=== PATIENT | female | born 1940 | race Caucasian/White ===

== ENCOUNTER 2017-10-17 20:58 | Emergency (ER) | payer MEDICARE ==
[2017-10-17 21:36] LABS: ADD MAN DIFF? NO
[2017-10-17 21:43] LABS: BASO % 1 % (0-3); EOS # 0.1 x10^3/uL (0.0-0.7); EOS % 1 % (0-3); HEMATOCRIT 37.5 % (36.0-47.0); HEMOGLOBIN 12.3 g/dL (12.0-15.5); LYMPH # 1.5 x10^3/uL (1.0-4.8); LYMPH % 26 % (24-48); MEAN CORPUSCULAR HEMOGLOBIN 30 pg (25-35); MEAN CORPUSCULAR HGB CONC 33 g/dL (31-37); MEAN CORPUSCULAR VOLUME 92 fL (79-100); MONO # 0.5 x10^3/uL (0.0-1.1); MONO % 9 % (0-9); NEUT # 3.6 x10^3uL (1.8-7.7); NEUT % 63 % (31-73); PLATELET COUNT 225 x10^3/uL (140-400); RED BLOOD COUNT 4.09 x10^6/uL (3.50-5.40); WHITE BLOOD COUNT 5.8 x10^3/uL (4.0-11.0)
[2017-10-17 21:53] LABS: PARTIAL THROMBOPLASTIN TIME 32 SEC (24-38); PROTHROMBIN TIME PATIENT 12.5 SEC (11.7-14.0)
[2017-10-17 21:56] LABS: D-DIMER 0.45 ug/mlFEU (0.00-0.50)
[2017-10-17 22:07] LABS: TROPONINI < 0.017 ng/mL (0.000-0.055)
[2017-10-17 22:07] LABS: ANION GAP 11 (6-14); BLOOD UREA NITROGEN 13 mg/dL (7-20); BUN/CREATININE RATIO 19 (6-20); CALCIUM 8.5 mg/dL (8.5-10.1); CARBON DIOXIDE 26 mmol/L (21-32); CHLORIDE 102 mmol/L (98-107); CREATININE 0.7 mg/dL (0.6-1.0); GFR 80.9; GLUCOSE 101 mg/dL (70-99); POTASSIUM 5.2 mmol/L (3.5-5.1); SODIUM 139 mmol/L (136-145)
[2017-10-17 22:12] LABS: NT-PRO BNP 163 pg/mL (0-449)
[2017-10-17 22:12] LABS: ALBUMIN 3.6 g/dL (3.4-5.0); ALBUMIN/GLOBULIN RATIO 1.2 (1.0-1.7); ALK PHOS 48 U/L (46-116); ALT (SGPT) 14 U/L (14-59); AST (SGOT) 30 U/L (15-37); LIPASE 234 U/L (73-393); MAGNESIUM 2.1 mg/dL (1.8-2.4); TOTAL BILIRUBIN 0.4 mg/dL (0.2-1.0); TOTAL PROTEIN 6.5 g/dL (6.4-8.2)
[2017-10-17] MEDS: ASPIRIN ENTERIC COATED 325 MG TABLET.DR. PO (22:24)
[2017-10-17] MEDS: LIDO:MAALOX:DONNATAL 1:1:1 15 ML SINGLE DOSE SWSW (22:25)
[2017-10-17] MEDS: KETOROLAC 15 MG/ML VIAL. IV (22:27)
[2017-10-17] MEDS: fentaNYL PF VIAL 100 MCG/2 ML VIAL IV (22:31)
[2017-10-18 02:26] LABS: TROPONINI < 0.017 ng/mL (0.000-0.055)
== END 2017-10-18 04:06 | disposition home or self-care (01) ==
LOC: ER 10-18 04:06
DX: R07.89 Other chest pain (principal); R06.02 Shortness of breath; I10 Essential (primary) hypertension; F03.90 Unspecified dementia, unspecified severity, without behavioral disturbance, psychotic disturbance, mood disturbance, and anxiety; Z90.710 Acquired absence of both cervix and uterus
CPT/HCPCS: 36415; 71045; 80053; 83690; 83735; 83880; 84484; 85025; 85379; 85610; 85730; 93005; 96374; 96375; 99285-25; J1885; J3010

== ENCOUNTER 2018-02-08 11:37 | Inpatient (IN) | payer MEDICARE, OTHER ==
[2018-02-08 12:10] LABS: ADD MAN DIFF? NO
[2018-02-08 12:23] LABS: BASO % 1 % (0-3); EOS # 0.1 x10^3/uL (0.0-0.7); EOS % 1 % (0-3); HEMATOCRIT 37.3 % (36.0-47.0); HEMOGLOBIN 12.5 g/dL (12.0-15.5); LYMPH % 17 % (24-48); MEAN CORPUSCULAR HEMOGLOBIN 30 pg (25-35); MEAN CORPUSCULAR HGB CONC 34 g/dL (31-37); MEAN CORPUSCULAR VOLUME 90 fL (79-100); MONO # 0.5 x10^3/uL (0.0-1.1); MONO % 8 % (0-9); NEUT # 4.4 x10^3uL (1.8-7.7); NEUT % 73 % (31-73); PLATELET COUNT 200 x10^3/uL (140-400); RED BLOOD COUNT 4.15 x10^6/uL (3.50-5.40); RED CELL DISTRIBUTION WIDTH 13.1 % (11.5-14.5)
[2018-02-08] MEDS: fentaNYL PF VIAL 100 MCG/2 ML VIAL IV (12:28)
[2018-02-08 12:29] LABS: ANION GAP 8 (6-14); BLOOD UREA NITROGEN 18 mg/dL (7-20); BUN/CREATININE RATIO 23 (6-20); CALCIUM 8.9 mg/dL (8.5-10.1); CARBON DIOXIDE 28 mmol/L (21-32); CHLORIDE 105 mmol/L (98-107); CREATININE 0.8 mg/dL (0.6-1.0); GFR 69.4; GLUCOSE 100 mg/dL (70-99); POTASSIUM 3.8 mmol/L (3.5-5.1); SODIUM 141 mmol/L (136-145)
[2018-02-08 12:35] LABS: ALBUMIN 3.6 g/dL (3.4-5.0); ALBUMIN/GLOBULIN RATIO 1.1 (1.0-1.7); ALK PHOS 59 U/L (46-116); ALT (SGPT) 15 U/L (14-59); AST (SGOT) 16 U/L (15-37); LIPASE 592 U/L (73-393); TOTAL BILIRUBIN 0.6 mg/dL (0.2-1.0); TOTAL PROTEIN 6.8 g/dL (6.4-8.2)
[2018-02-08 12:39] LABS: PARTIAL THROMBOPLASTIN TIME 35 SEC (24-38); PROTHROMBIN TIME PATIENT 12.7 SEC (11.7-14.0)
[2018-02-08 12:46] LABS: CKMB MASS 0.9 ng/mL (0.0-3.6); CREATINE KINASE 55 U/L (26-192)
[2018-02-08 13:06] LABS: LACTIC ACID 1.1 mmol/L (0.4-2.0)
[2018-02-08] MEDS ORDERED: CONTRAST GIVEN MC (13:15)
[2018-02-08] MEDS ORDERED: IOHEXOL 240 MG/ML 50ML VIAL. PO (13:15)
[2018-02-08 13:40] LABS: BILIRUBIN,URINE NEGATIVE (NEG); CLARITY,URINE CLEAR; COLOR,URINE YELLOW; GLUCOSE,URINE NEGATIVE (NEG); NITRITE,URINE NEGATIVE (NEG); PH,URINE 7.5; PROTEIN,URINE NEGATIVE (NEG-TRACE); UROBILINOGEN,URINE 0.2 mg/dL (0.2 mg/dL)
[2018-02-08] MEDS: IOHEXOL 300 MG/ML 100ML VIAL. IV (13:43)
[2018-02-08 13:54] LABS: BACTERIA,URINE FEW /HPF (0-FEW); RBC,URINE 0 /HPF (0-2); SQUAMOUS EPITHELIAL CELL,UR FEW /LPF; WBC,URINE 0 /HPF (0-4)
[2018-02-08 13:55] LABS: AMORPHOUS SEDIMENT,UR PRESENT /HPF
[2018-02-08] MEDS ORDERED: ONDANSETRON PF 4 MG/2 ML VIAL. IV (16:15)
[2018-02-08] MEDS ORDERED: MORPHINE SULFATE 4 MG/ML DISP.SYRIN. IV (16:15)
[2018-02-08] MEDS: POTASSIUM CL 20MEQ D5-0.45NACL 1,000 ML IV (17:12)
[2018-02-08] MEDS: ATORVASTATIN CALCIUM 10 MG TABLET. PO (20:39)
[2018-02-08] MEDS: PANTOPRAZOLE 40 MG TABLET.DR. PO (20:39)
[2018-02-08] MEDS: ENOXAPARIN 40 MG/0.4 ML SYRINGE. SQ (20:43)
[2018-02-09 04:31] LABS: HEMATOCRIT 33.4 % (36.0-47.0); HEMOGLOBIN 11.4 g/dL (12.0-15.5); MEAN CORPUSCULAR HEMOGLOBIN 31 pg (25-35); MEAN CORPUSCULAR HGB CONC 34 g/dL (31-37); MEAN CORPUSCULAR VOLUME 90 fL (79-100); PLATELET COUNT 195 x10^3/uL (140-400); RED BLOOD COUNT 3.72 x10^6/uL (3.50-5.40); RED CELL DISTRIBUTION WIDTH 12.8 % (11.5-14.5); WHITE BLOOD COUNT 5.4 x10^3/uL (4.0-11.0)
[2018-02-09 05:50] LABS: ALK PHOS 53 U/L (46-116); ALT (SGPT) 15 U/L (14-59); AMYLASE 51 U/L (25-115); ANION GAP 5 (6-14); AST (SGOT) 14 U/L (15-37); BLOOD UREA NITROGEN 10 mg/dL (7-20); BUN/CREATININE RATIO 14 (6-20); CALCIUM 8.5 mg/dL (8.5-10.1); CARBON DIOXIDE 30 mmol/L (21-32); CHLORIDE 107 mmol/L (98-107); CHOLESTEROL 211 mg/dL (0-200); CREATININE 0.7 mg/dL (0.6-1.0); GFR 80.9; GLUCOSE 99 mg/dL (70-99); HDLC 65 mg/dL (40-60); LDLC 129 mg/dL (0-100); LIPASE 142 U/L (73-393); NON-HDL CHOLESTEROL 146 mg/dL (0-129); POTASSIUM 3.3 mmol/L (3.5-5.1); SODIUM 142 mmol/L (136-145); TOTAL BILIRUBIN 0.5 mg/dL (0.2-1.0); TOTAL PROTEIN 5.9 g/dL (6.4-8.2); TRIGLYCERIDES 87 mg/dL (0-150); VLDLC 17 mg/dL (0-40)
[2018-02-09 05:52] LABS: CHOLESTEROL/HDL RATIO 3.2
[2018-02-09] MEDS ORDERED: PANTOPRAZOLE 40 MG TABLET.DR. PO (07:30)
[2018-02-09] MEDS: PANTOPRAZOLE 40 MG TABLET.DR. PO (07:38)
[2018-02-09 07:53] LABS: SEDIMENTATION RATE 8 (0-25)
[2018-02-09] MEDS: ASPIRIN ENTERIC COATED 81 MG TABLET.DR. PO (08:43)
[2018-02-09] MEDS: LIDO:MAALOX 1:1 20 ML SINGLE DOSE. PO ×2 (10:07→22:02)
[2018-02-09] MEDS: ACETAMINOPHEN 325 MG TABLET. PO ×2 (10:07→22:01)
[2018-02-09] MEDS ORDERED: PSEUDOEPHEDRINE ER 120 MG TABLET.ER. PO (12:00)
[2018-02-09] MEDS: POTASSIUM CHLORIDE 20 MEQ TABLET.ER. PO (12:24)
[2018-02-09] MEDS: CETIRIZINE HCL 10 MG TABLET. PO (12:24)
[2018-02-09] MEDS: ATORVASTATIN CALCIUM 10 MG TABLET. PO (22:01)
[2018-02-09] MEDS: TEMAZEPAM 7.5 MG CAPSULE PO (22:01)
[2018-02-09] MEDS: ENOXAPARIN 40 MG/0.4 ML SYRINGE. SQ (22:02)
[2018-02-10 04:46] LABS: HEMATOCRIT 33.8 % (36.0-47.0); HEMOGLOBIN 11.7 g/dL (12.0-15.5); MEAN CORPUSCULAR HEMOGLOBIN 31 pg (25-35); MEAN CORPUSCULAR HGB CONC 35 g/dL (31-37); MEAN CORPUSCULAR VOLUME 89 fL (79-100); PLATELET COUNT 189 x10^3/uL (140-400); RED BLOOD COUNT 3.79 x10^6/uL (3.50-5.40); RED CELL DISTRIBUTION WIDTH 12.7 % (11.5-14.5); WHITE BLOOD COUNT 4.9 x10^3/uL (4.0-11.0)
[2018-02-10 05:05] LABS: ALBUMIN 3.1 g/dL (3.4-5.0); ALBUMIN/GLOBULIN RATIO 1.1 (1.0-1.7); ALK PHOS 57 U/L (46-116); ALT (SGPT) 17 U/L (14-59); AMYLASE 68 U/L (25-115); ANION GAP 5 (6-14); AST (SGOT) 17 U/L (15-37); BLOOD UREA NITROGEN 10 mg/dL (7-20); BUN/CREATININE RATIO 14 (6-20); CALCIUM 8.8 mg/dL (8.5-10.1); CARBON DIOXIDE 32 mmol/L (21-32); CHLORIDE 105 mmol/L (98-107); CREATININE 0.7 mg/dL (0.6-1.0); GFR 80.9; GLUCOSE 96 mg/dL (70-99); LIPASE 320 U/L (73-393); POTASSIUM 3.8 mmol/L (3.5-5.1); SODIUM 142 mmol/L (136-145); TOTAL BILIRUBIN 0.5 mg/dL (0.2-1.0)
[2018-02-10 06:52] LABS: SEDIMENTATION RATE 6 (0-25)
[2018-02-10] MEDS: CETIRIZINE HCL 10 MG TABLET. PO (08:19)
[2018-02-10] MEDS: ACETAMINOPHEN 325 MG TABLET. PO (08:19)
[2018-02-10] MEDS: ASPIRIN ENTERIC COATED 81 MG TABLET.DR. PO (08:19)
[2018-02-10] MEDS: PANTOPRAZOLE 40 MG TABLET.DR. PO (08:19)
== END 2018-02-10 15:30 | disposition home health service (06) | DRG 440 ==
LOC: ER 11:37 → 5 NORTH 16:00
DX: K85.90 Acute pancreatitis without necrosis or infection, unspecified (principal); F03.90 Unspecified dementia, unspecified severity, without behavioral disturbance, psychotic disturbance, mood disturbance, and anxiety; E78.5 Hyperlipidemia, unspecified; F41.9 Anxiety disorder, unspecified; I10 Essential (primary) hypertension; K21.9 Gastro-esophageal reflux disease without esophagitis; K57.30 Diverticulosis of large intestine without perforation or abscess without bleeding; K59.00 Constipation, unspecified; K86.1 Other chronic pancreatitis; M19.90 Unspecified osteoarthritis, unspecified site; M81.0 Age-related osteoporosis without current pathological fracture; Z82.0 Family history of epilepsy and other diseases of the nervous system; Z83.3 Family history of diabetes mellitus; Z90.710 Acquired absence of both cervix and uterus; Z98.49 Cataract extraction status, unspecified eye
CPT/HCPCS: 36415; 74177; 76700; 80053; 80061; 81001; 82150; 82553; 83605; 83690; 85025; 85027; 85610; 85651; 85730; 93005; 96365; 96375; 99285-25; J1650; J3010; Q9967

== ENCOUNTER 2018-06-23 14:43 | Emergency (ER) | payer MEDICARE ==
[~2018-06-23] VITALS: Ht 160 cm; Wt 60.8 kg
[~2018-06-23 14:43] MED LIST: ASPI-612 PO; ATOR10TA60 PO; CIPR250T30 PO; DONE10TA7 PO; DONE5TAB7 PO; GINK30CA PO; GLUC1TAB71 PO; HYDR-3074 PO; LISI10TA2 PO; METR500T PO; OMEP10CA3 PO; OXYB1PAT4 TD; PANT40TA5 PO; RANI150T21 PO; SERT50TA PO; TRAM-48 PO
[2018-06-23 17:44] LABS: BASO # 0.1 x10^3/uL (0.0-0.2); BASO % 1 % (0-3); EOS # 0.1 x10^3/uL (0.0-0.7); EOS % 1 % (0-3); HEMATOCRIT 37.6 % (36.0-47.0); HEMOGLOBIN 12.7 g/dL (12.0-15.5); LYMPH # 1.1 x10^3/uL (1.0-4.8); LYMPH % 13 % (24-48); MEAN CORPUSCULAR HEMOGLOBIN 31 pg (25-35); MEAN CORPUSCULAR HGB CONC 34 g/dL (31-37); MEAN CORPUSCULAR VOLUME 91 fL (79-100); MONO # 0.9 x10^3/uL (0.0-1.1); MONO % 10 % (0-9); NEUT # 6.5 x10^3uL (1.8-7.7); NEUT % 75 % (31-73); PLATELET COUNT 226 x10^3/uL (140-400); RED BLOOD COUNT 4.15 x10^6/uL (3.50-5.40); RED CELL DISTRIBUTION WIDTH 14.1 % (11.5-14.5); WHITE BLOOD COUNT 8.6 x10^3/uL (4.0-11.0)
--- NOTE | 2018-06-23 17:52 | PHYS DOC ---
Past Medical History Past Medical History: Constipation, Dementia, Diverticulitis, Hypertension, Pancreatitis Additional Past Medical Histor: pancreatitis Past Surgical History: Hysterectomy, Tonsillectomy, Other Additional Past Surgical Histo: partial hysterectomy, hernia repair Alcohol Use: None Drug Use: None Adult General Chief Complaint Chief Complaint: LOWER EXT PAIN HPI HPI Patient is a 78 year old female who presents with complaints of right foot pain that shoots up her leg since awakening this morning. She denies any recent injury. States that her foot feels tender to touch. She was recently admitted to the hospital last week for diverticulitis and is currently taking Cipro and Flagyl for treatment of that condition. She denies any abdominal pain, nausea, vomiting, diarrhea, or fever today. Her only complaint is her foot pain , currently she rates it as 10 out of 10 on the pain scale. Review of Systems Review of Systems Constitutional: Denies fever or chills [] GI: Denies abdominal pain, nausea, vomiting, or diarrhea [] : Denies dysuria or hematuria [] Musculoskeletal: reports R foot pain and swelling since awakening with no known injury Integument: Denies rash or skin lesions [] Neurologic: Denies headache, focal weakness or sensory changes [] All other systems were reviewed and found to be within normal limits, except as documented in this note. Current Medications Current Medications Current Medications Medications (Trade) Dose Ordered Sig/Bob Start Time Stop Time Status Last Admin Dose Admin Acetaminophen/ Codeine Phosphate (Tylenol #3) 1 tab 1X ONCE 06/23/18 20:30 06/23/18 20:31 DC 06/23/18 20:50 1 TAB Allergies Allergies Allergies Coded Allergies Type Severity Reaction Last Updated Verified Sulfa (Sulfonamide Antibiotics) Adverse Reaction Intermediate Nausea and Vomiting 06/23/18 Yes Physical Exam Physical Exam Constitutional: Well developed, well nourished, no acute distress, non-toxic appearance. [] HENT: Normocephalic, atraumatic, bilateral external ears normal, nose normal. [] Eyes: conjunctiva normal, no discharge. [] Skin: Warm, dry, no erythema, no rash. [] Extremities: No cyanosis, no clubbing, ROM intact, 1+ edema to right foot with tenderness to palpation, no deformity Neurologic: Alert and oriented X 3, normal motor function, normal sensory function, no focal deficits noted. [] Psychologic: Affect normal, judgement normal, mood normal. [] Current Patient Data Vital Signs Vital Signs Date Time Temp Pulse Resp B/P (MAP) Pulse Ox O2 Delivery O2 Flow Rate FiO2 06/23/18 21:00 66 18 155/68 (97) 99 06/23/18 20:50 Room Air 06/23/18 16:00 97.9 97.9 Lab Values Laboratory Tests Test 06/23/18 16:50 06/23/18 17:30 Uric Acid 3.2 mg/dL (2.6-6.0) White Blood Count 8.6 x10^3/uL (4.0-11.0) Red Blood Count 4.15 x10^6/uL (3.50-5.40) Hemoglobin 12.7 g/dL (12.0-15.5) Hematocrit 37.6 % (36.0-47.0) Mean Corpuscular Volume 91 fL (79-100) Mean Corpuscular Hemoglobin 31 pg (25-35) Mean Corpuscular Hemoglobin Concent 34 g/dL (31-37) Red Cell Distribution Width 14.1 % (11.5-14.5) Platelet Count 226 x10^3/uL (140-400) Neutrophils (%) (Auto) 75 % (31-73) H Lymphocytes (%) (Auto) 13 % (24-48) L Monocytes (%) (Auto) 10 % (0-9) H Eosinophils (%) (Auto) 1 % (0-3) Basophils (%) (Auto) 1 % (0-3) Neutrophils # (Auto) 6.5 x10^3uL (1.8-7.7) Lymphocytes # (Auto) 1.1 x10^3/uL (1.0-4.8) Monocytes # (Auto) 0.9 x10^3/uL (0.0-1.1) Eosinophils # (Auto) 0.1 x10^3/uL (0.0-0.7) Basophils # (Auto) 0.1 x10^3/uL (0.0-0.2) Laboratory Tests 06/23/18 17:30 EKG EKG [] Radiology/Procedures Radiology/Procedures PROCEDURE: FOOT RIGHT 3V Right foot radiograph 06/23/2018 6:16 PM INDICATION: Acute foot pain in the great toe COMPARISON: None available. TECHNIQUE: 3 views of the right foot are provided. FINDINGS: There is no acute fracture or dislocation. There is joint space narrowing with subcortical sclerosis and marginal osteophytosis involving the first metatarsophalangeal joint. Mineralization is identified along the subcutaneous soft tissues. There is mild soft tissue swelling. Mild hallux valgus deformity noted. There is no soft tissue gas or osseous erosion. Moderate osteoarthrosis of the midfoot. IMPRESSION: No acute fracture or dislocation. Degenerative changes of the first metatarsophalangeal joint with mineralization in the subcutaneous soft tissues. Differential consideration would include gout. PROCEDURE: VENOUS LOWER EXTREMITY RIGHT Ultrasound venous Doppler INDICATION:rt foot pain, swelling, redness since this am - no injury TECHNIQUE: Grayscale, color Doppler and spectral waveform ultrasound images of the right lower extremities deep veins obtained. COMPARISON: None FINDINGS: The interrogated deep veins are compressible and demonstrate evidence of blood flow with normal respiratory variation and response to augmentation. IMPRESSION: No sonographic evidence of acute DVT of the right lower extremity deep veins. [] Course & Med Decision Making Course & Med Decision Making Pertinent Labs and Imaging studies reviewed. (See chart for details) X-ray was negative for any acute fracture or dislocation, ultrasound was negative for DVT. Uric acid is not concerning for gout. Diagnosis of left foot pain, prescription written for naproxen 375 twice a day 10 days. Patient encouraged to rest, elevate, and apply ice or heat to the area for comfort. Follow-up with her doctor next week for further evaluation, watch for any increased redness or streaking up the leg. Return to the ER symptoms worsen. Patient and her family member verbalized an understanding of home care, medications, follow-up, and return to ED instructions and was in agreement with the plan of care. [] Dragon Disclaimer Dragon Disclaimer This electronic medical record was generated, in whole or in part, using a voice recognition dictation system. Departure Departure Impression: Primary Impression: Right foot pain Disposition: 01 HOME, SELF-CARE Condition: STABLE Referrals: IAN LECHUGA Jr, MD (PCP) Patient Instructions: Arthritis, Nonspecific, [id number] Additional Instructions: Fill the prescription and use it as directed. Recommend rest, ice, and elevation of the extremity for comfort. Follow up with your doctor next week for re-evaluation. Return to the ER if your symptoms worsen. Scripts Naproxen (NAPROXEN) 375 Mg Tablet 1 TAB PO BID for 10 Days, #20 TAB 0 Refills Prov: GAUTAM RODRÍGUEZ APRN 06/23/18 GAUTAM RODRÍGUEZ APRN Jun 23, 2018 17:52
--- NOTE | 2018-06-23 18:37 | RAD ---
Right foot radiograph 06/23/2018 6:16 PM INDICATION: Acute foot pain in the great toe COMPARISON: None available. TECHNIQUE: 3 views of the right foot are provided. FINDINGS: There is no acute fracture or dislocation. There is joint space narrowing with subcortical sclerosis and marginal osteophytosis involving the first metatarsophalangeal joint. Mineralization is identified along the subcutaneous soft tissues. There is mild soft tissue swelling. Mild hallux valgus deformity noted. There is no soft tissue gas or osseous erosion. Moderate osteoarthrosis of the midfoot. IMPRESSION: No acute fracture or dislocation. Degenerative changes of the first metatarsophalangeal joint with mineralization in the subcutaneous soft tissues. Differential consideration would include gout. Electronically signed by: Myla Camacho MD (06/23/2018 6:34 PM) [id number]
--- NOTE | 2018-06-23 20:27 | RAD ---
Ultrasound venous Doppler INDICATION:rt foot pain, swelling, redness since this am - no injury TECHNIQUE: Grayscale, color Doppler and spectral waveform ultrasound images of the right lower extremities deep veins obtained. COMPARISON: None FINDINGS: The interrogated deep veins are compressible and demonstrate evidence of blood flow with normal respiratory variation and response to augmentation. IMPRESSION: No sonographic evidence of acute DVT of the right lower extremity deep veins. Electronically signed by: Jagjit Foote DO (06/23/2018 8:24 PM) [facility]
[2018-06-23] MEDS ORDERED: ACETAMINOPHEN/CODEINE 300/30MG TABLET. PO ONE (20:30)
[2018-06-23 21:00] VITALS: BP 155/68
[2018-06-23] MEDS ORDERED: NAPR-695 PO (21:12)
== END 2018-06-23 21:32 | disposition home or self-care (01) ==
LOC: ER 14:43
DX: M79.671 Pain in right foot (principal); I10 Essential (primary) hypertension; F03.90 Unspecified dementia, unspecified severity, without behavioral disturbance, psychotic disturbance, mood disturbance, and anxiety; Z90.711 Acquired absence of uterus with remaining cervical stump; Z98.890 Other specified postprocedural states; Z88.2 Allergy status to sulfonamides
CPT/HCPCS: 36415; 73630; 84550; 85025; 93971; 99285-25

== ENCOUNTER → 2018-07-12 | Outpatient (CLI) | payer MEDICARE ==
[2018-06-23 21:00] VITALS: BP 155/68
[~2018-07-12] MED LIST changes: +IOHEXOL 240 MG/ML 50ML VIAL. PO ONE; +IOHEXOL 300 MG/ML 100ML VIAL. IV ONE; +NAPR-695 PO
--- NOTE | 2018-07-12 16:35 | KCIC ---
Examination: CT ABDOMEN WO/W AND PELVIS W/ History: Pain for months. Chronic constipation. Comparison/Correlation: 06/14/2018 CT abdomen and pelvis with contrast Findings: Axial images of the abdomen and pelvis were obtained following 89 cc Omnipaque 300 IV. Precontrast axial images of the abdomen were obtained. Visualized lung bases are clear. Liver is unremarkable. Numerous calcified granulomas involve the spleen. Pancreas has slight ductal dilatation similar to previous exam. No surrounding inflammatory change. Left renal low-attenuation lesion compatible with angiomyolipoma present in the superior pole. This measures up to 1.5 cm diameter. Additional smaller similar-appearing lesions involving the left kidney also seen. Right kidney is unremarkable. No radiopaque renal calculi. Moderate quantity of stool is present in the colon. No inflammatory change about the cecum. No ascites or pelvic free fluid. Severe L1 4-5 disc space narrowing is present. Vacuum phenomenon from L3 to S1 noted. Impression: No inflammatory process or obstruction. Moderate quantity of stool in the colon. Left renal angiomyolipoma. No significant change. Electronically signed by: Duy Cueto MD (07/12/2018 4:31 PM) [id number]
== END | disposition home or self-care (01) ==
LOC: KCIC CT 10:35
PROVIDERS: ATTEND Emergency Medicine
DX: D17.71 Benign lipomatous neoplasm of kidney (principal); M48.061 Spinal stenosis, lumbar region without neurogenic claudication; D73.89 Other diseases of spleen
CPT/HCPCS: 72193; 74170; Q9966; Q9967

== ENCOUNTER → 2018-12-12 | Outpatient (CLI) | payer MEDICARE ==
[~2018-12-12] MED LIST changes: -HYDR-3074 PO; +HYDR10TA66 PO; -OMEP10CA3 PO; +OMEP10CA4 PO; +OXYC1TAB15 PO; +RANI-376 PO; -RANI150T21 PO
--- NOTE | 2018-12-12 12:41 | KCIC ---
PQRS Compliance statement: One or more of the following individualized dose reduction techniques were utilized for this examination: 1. Automated exposure control. 2. Adjustment of the mA and/or kV according to patient size. 3. Use of iterative reconstruction technique. Indication:Left lower quadrant pain. Right inguinal hernia. TECHNIQUE: CT abdomen and pelvis with IV contrast with multiplanar reformats. COMPARISON: 07/2018 FINDINGS: Heart is normal in size. No pericardial or pleural effusion. Clear lung bases. Multiple calcified granulomata seen in the spleen and liver. No radiopaque gallstones. Mild prominence of main pancreatic duct and CBD without obstructing radiopaque stone. No apparent mass is seen in the pancreatic head region. No peripancreatic inflammatory changes. Adrenal glands demonstrate no nodularity. No nephrolithiasis or hydronephrosis. Multiple angiomyolipomas is seen in the left kidney, the largest measuring 1.6 cm. No enlarged retroperitoneal or pelvic adenopathy. Mild diffuse atherosclerotic disease of the abdominal aorta. Mild proximal sigmoid/distal descending colon diverticulosis without pericolonic inflammatory changes. No bowel obstruction. Status post hysterectomy. Urinary bladder is within normal limits. Very small fat-containing right inguinal hernia. No suspicious bony lesion. IMPRESSION: 1. Mild distal descending colon/proximal sigmoid colon diverticulosis without diverticulitis. No bowel obstruction. 2. No nephrolithiasis or hydronephrosis. Multiple left renal angiomyolipomas. 2. Electronically signed by: Jagjit Foote DO (12/12/2018 12:38 PM) [id number]
== END | disposition home or self-care (01) ==
LOC: CT 10:00
PROVIDERS: ATTEND Surgery
DX: K57.30 Diverticulosis of large intestine without perforation or abscess without bleeding (principal); K40.30 Unilateral inguinal hernia, with obstruction, without gangrene, not specified as recurrent; I70.0 Atherosclerosis of aorta; D17.71 Benign lipomatous neoplasm of kidney; Z90.710 Acquired absence of both cervix and uterus
CPT/HCPCS: 74177; 82565; Q9966; Q9967

== ENCOUNTER 2019-01-22 09:57 | Emergency (ER) | payer MEDICARE ==
[~2019-01-22] VITALS: Ht 162.6 cm; Wt 65.8 kg
[~2019-01-22 09:57] MED LIST changes: -IOHEXOL 240 MG/ML 50ML VIAL. PO ONE; -IOHEXOL 300 MG/ML 100ML VIAL. IV ONE; -OXYC1TAB15 PO
[2019-01-22 10:27] VITALS: BP 179/77
[2019-01-22] MEDS ORDERED: HYDROcodone/APAP 5/325MG 1 TAB TABLET PO ONE (10:30)
[2019-01-22] MEDS ORDERED: ONDANSETRON ODT 4 MG TAB.RAPDIS. PO ONE (10:30)
[2019-01-22 11:19] LABS: BILIRUBIN,URINE NEGATIVE (NEG); CLARITY,URINE CLEAR; COLOR,URINE YELLOW; NITRITE,URINE NEGATIVE (NEG); PH,URINE 7.5; PROTEIN,URINE NEGATIVE (NEG-TRACE); UROBILINOGEN,URINE 0.2 mg/dL (0.2 mg/dL)
[2019-01-22 11:23] LABS: BACTERIA,URINE 0 /HPF (0-FEW); RBC,URINE OCC /HPF (0-2); SQUAMOUS EPITHELIAL CELL,UR FEW /LPF; WBC,URINE OCC /HPF (0-4)
--- NOTE | 2019-01-22 11:46 | RAD ---
CT Abdomen and Pelvis without contrast History: Left inguinal hernia pain Technique: Noncontrast CT imaging was performed of the abdomen and pelvis. Multiplanar images are reviewed. Exposure: One or more of the following individualized dose reduction techniques were utilized for this examination: 1. Automated exposure control 2. Adjustment of the mA and/or kV according to patient size 3. Use of iterative reconstruction technique. Comparison: December 12, 2018 Findings: Accurate evaluation of bowel is somewhat limited without oral contrast. Bowel is not significantly dilated. There is no free air or significant free fluid. There is a greater degree of retained stool aeration of the cecum and ascending colon. There is some visualization of segments of the small bowel such as in the left abdomen. There is likely small bowel wall thickening such as of the left abdomen and pelvis. There also may be some mild wall thickening of segments of the left colon. Segments of normal caliber appendix are believed to be visualized. There is some very minimal fat in the right inguinal canal. There is no left inguinal hernia. There is no abnormality of the limited visualized lung bases. Evaluation of abdominal visceral organs is limited without intravenous contrast. There are again hepatic and splenic granulomas. There is similar mild left renal pelviectasis. There are no renal calculi. There is again focus of peripheral fat density of the left kidney about 1.6 cm in size, separate focus of peripheral fat density of the mid left kidney about 1.1 cm, and a third peripheral focus of the left kidney with fat density measuring about 0.7 cm. There is no significant adrenal nodularity. There is no new obvious abnormality of the pancreas. Gallbladder is present without obvious intraluminal abnormality by CT. There is scattered atherosclerotic calcification of the abdominal aorta. There is multilevel advanced degenerative disc disease of lumbar spine greatest L3-4 and L5-S1 and to lesser degree at L2-3. There is also multilevel lumbar facet degenerative change. There is fairly severe narrowing of the left L5-S1 neural foramen, lesser degree of narrowing on the right at L4-5. Impression: 1. Accurate evaluation of bowel is somewhat limited without oral contrast, likely small bowel wall thickening in the left abdomen and pelvis as may be seen with enteritis, also possibly a degree of mild left colonic wall thickening as could be seen with mild colitis. There is no significant free fluid or free air. 2. There are again left renal angiomyolipomas. 3. There is multilevel lumbar degenerative disc disease and facet degenerative change. There is severe narrowing of the left L5-S1 neural foramen. Electronically signed by: Kamran Souza MD (01/22/2019 11:43 AM) [facility]
--- NOTE | 2019-01-22 12:16 | PHYS DOC ---
Past Medical History Past Medical History: Constipation, Dementia, Diverticulitis, Hypertension, Pancreatitis Additional Past Medical Histor: pancreatitis Past Surgical History: Hysterectomy, Tonsillectomy, Other Additional Past Surgical Histo: partial hysterectomy, hernia repair Alcohol Use: None Drug Use: None Adult General Chief Complaint Chief Complaint: GROIN PAIN [facility] HPI Patient is a 78 year old female with history of hypertension, diverticulosis, constipation, who presents to the ED today complaining of right groin pain from her inguinal hernia. Patient states the pain is chronic but got worse during the winter months around September 2018 when she lifted a bag of salt. Patient states she had a CT done in December which was negative. She states today she tried taking her Tylenol 3 with minimal relief. Patient denies any nausea or vomiting. Denies any diarrhea. She states she was originally constipated and took some laxative and had a normal bowel movement denies any chest pain or shortness of breath. She states she has an appointment coming up with her own doctor for the inguinal hernia. Review of Systems Review of Systems Constitutional: Denies fever or chills [] Eyes: Denies change in visual acuity, redness, or eye pain [] HENT: Denies nasal congestion or sore throat [] Respiratory: Denies cough or shortness of breath [] Cardiovascular: No additional information not addressed in HPI [] GI: Reports right groin pain from her inguinal hernia, denies nausea, vomiting, bloody stools or diarrhea [] : Denies dysuria or hematuria [] Musculoskeletal: Denies back pain or joint pain [] Integument: Denies rash or skin lesions [] Neurologic: Denies headache, focal weakness or sensory changes [] All other systems were reviewed and found to be within normal limits, except as documented in this note. Current Medications Current Medications Current Medications Medications (Trade) Dose Ordered Sig/Bob Start Time Stop Time Status Last Admin Dose Admin Acetaminophen/ Hydrocodone Bitart (Lortab 5/325) 2 tab 1X ONCE 01/22/19 10:30 01/22/19 10:32 DC 01/22/19 10:42 2 TAB Ondansetron HCl (Zofran Odt) 4 mg 1X ONCE 01/22/19 10:30 01/22/19 10:32 DC 01/22/19 10:41 4 MG Allergies Allergies Allergies Coded Allergies Type Severity Reaction Last Updated Verified Sulfa (Sulfonamide Antibiotics) Adverse Reaction Intermediate Nausea and Vomiting 06/23/18 Yes Physical Exam Physical Exam Constitutional: Well developed, well nourished, no acute distress, non-toxic appearance. [] HENT: Normocephalic, atraumatic, bilateral external ears normal, oropharynx moist, no oral exudates, nose normal. [] Eyes: PERRLA, EOMI, conjunctiva normal, no discharge. [] Neck: Normal range of motion, no tenderness, supple, no stridor. [] Cardiovascular:Heart rate regular rhythm, no murmur [] Lungs & Thorax: Bilateral breath sounds clear to auscultation [] Abdomen: Bowel sounds normal, soft, no right upper quadrant tenderness, no tenderness on the right lower quadrant, reducible inguinal hernia noted, was able to reduce it in the ED, no masses, no pulsatile masses. [] Skin: Warm, dry, no erythema, no rash. [] Back: No tenderness, no CVA tenderness. [] Extremities: No tenderness, no cyanosis, no clubbing, ROM intact, no edema. [] Neurologic: Alert and oriented X 3, normal motor function, normal sensory function, no focal deficits noted. [] Psychologic: Affect normal, judgement normal, mood normal. [] Current Patient Data Vital Signs Vital Signs Date Time Temp Pulse Resp B/P (MAP) Pulse Ox O2 Delivery O2 Flow Rate FiO2 01/22/19 10:42 16 99 Room Air 01/22/19 10:27 98.1 70 179/77 (111) 98.1 Lab Values Laboratory Tests Test 01/22/19 10:35 Urine Collection Type Unknown Urine Color Yellow Urine Clarity Clear Urine pH 7.5 Urine Specific [place] 1.010 Urine Protein Negative mg/dL (NEG-TRACE) Urine Glucose (UA) Negative mg/dL (NEG) Urine Ketones (Stick) Negative mg/dL (NEG) Urine Blood Negative (NEG) Urine Nitrite Negative (NEG) Urine Bilirubin Negative (NEG) Urine Urobilinogen Dipstick 0.2 mg/dL (0.2 mg/dL) Urine Leukocyte Esterase Negative (NEG) Urine RBC Occ /HPF (0-2) Urine WBC Occ /HPF (0-4) Urine Squamous Epithelial Cells Few /LPF Urine Bacteria 0 /HPF (0-FEW) EKG EKG [] Radiology/Procedures Radiology/Procedures []PROCEDURE: CT ABDOMEN PELVIS WO CONTRAST CT Abdomen and Pelvis without contrast History: Left inguinal hernia pain Technique: Noncontrast CT imaging was performed of the abdomen and pelvis. Multiplanar images are reviewed. Exposure: One or more of the following individualized dose reduction techniques were utilized for this examination: 1. Automated exposure control 2. Adjustment of the mA and/or kV according to patient size 3. Use of iterative reconstruction technique. Comparison: December 12, 2018 Findings: Accurate evaluation of bowel is somewhat limited without oral contrast. Bowel is not significantly dilated. There is no free air or significant free fluid. There is a greater degree of retained stool aeration of the cecum and ascending colon. There is some visualization of segments of the small bowel such as in the left abdomen. There is likely small bowel wall thickening such as of the left abdomen and pelvis. There also may be some mild wall thickening of segments of the left colon. Segments of normal caliber appendix are believed to be visualized. There is some very minimal fat in the right inguinal canal. There is no left inguinal hernia. There is no abnormality of the limited visualized lung bases. Evaluation of abdominal visceral organs is limited without intravenous contrast. There are again hepatic and splenic granulomas. There is similar mild left renal pelviectasis. There are no renal calculi. There is again focus of peripheral fat density of the left kidney about 1.6 cm in size, separate focus of peripheral fat density of the mid left kidney about 1.1 cm, and a third peripheral focus of the left kidney with fat density measuring about 0.7 cm. There is no significant adrenal nodularity. There is no new obvious abnormality of the pancreas. Gallbladder is present without obvious intraluminal abnormality by CT. There is scattered atherosclerotic calcification of the abdominal aorta. There is multilevel advanced degenerative disc disease of lumbar spine greatest L3-4 and L5-S1 and to lesser degree at L2-3. There is also multilevel lumbar facet degenerative change. There is fairly severe narrowing of the left L5-S1 neural foramen, lesser degree of narrowing on the right at L4-5. Impression: 1. Accurate evaluation of bowel is somewhat limited without oral contrast, likely small bowel wall thickening in the left abdomen and pelvis as may be seen with enteritis, also possibly a degree of mild left colonic wall thickening as could be seen with mild colitis. There is no significant free fluid or free air. 2. There are again left renal angiomyolipomas. 3. There is multilevel lumbar degenerative disc disease and facet degenerative change. There is severe narrowing of the left L5-S1 neural foramen. Electronically signed by: Carissa Yadav MD (01/22/2019 11:43 AM) [id number] DICTATED and SIGNED BY: CARISSA YADAV MD DATE: 01/22/19 1143 Course & Med Decision Making Course & Med Decision Making Pertinent Labs and Imaging studies reviewed. (See chart for details) This is a 78-year-old female patient with history of right inguinal hernia presenting to the ED today complaining of the same, she states the pain got worse sometime in the winter when she lifted a bag of salt. CT of the abdomen and pelvic was negative for any acute findings. CT noted for possible colitis, patient denies any diarrhea or vomiting. UA is negative for infection. Patient was given 2 tablets of hydrocodone with complete relief of her pain. She was discharged to home. She has an appointment with her own doctor coming up in a couple weeks. We also provided a general surgeon for follow-up as an outpatient. Dragon Disclaimer Dragon Disclaimer This electronic medical record was generated, in whole or in part, using a voice recognition dictation system. Departure Departure Impression: Primary Impression: Abdominal pain Additional Impression: Inguinal hernia Disposition: HOME, SELF-CARE Condition: STABLE Referrals: NO PCP (PCP) JAN TRACEY MD follow up in 1 week Patient Instructions: Inguinal Hernia, Adult Additional Instructions: You were evaluated in the emergency room for your chronic inguinal hernia pain. Continue taking your Tylenol 3 as needed for pain. Ensure you take a stool softener every day as well as MiraLAX to prevent constipation. Avoid lifting anything heavier than a gallon of milk. Follow-up with your own doctor in 1-2 weeks of the provided general surgeon Problem Qualifiers Primary Impression: Abdominal pain Abdominal location: right lower quadrant Qualified Codes: R10.31 - Right lower quadrant pain Additional Impression: Inguinal hernia Obstruction and gangrene presence: without obstruction or gangrene Laterality : unilateral Recurrence: recurrent Qualified Codes: K40.91 - Unilateral inguinal hernia, without obstruction or gangrene, recurrent MUTJORGE [place] CECIL Jan 22, 2019 12:16
== END 2019-01-22 12:28 | disposition home or self-care (01) ==
LOC: ER 09:57
DX: K40.91 Unilateral inguinal hernia, without obstruction or gangrene, recurrent (principal); G89.29 Other chronic pain; I10 Essential (primary) hypertension; F03.90 Unspecified dementia, unspecified severity, without behavioral disturbance, psychotic disturbance, mood disturbance, and anxiety; Z87.19 Personal history of other diseases of the digestive system; Z90.711 Acquired absence of uterus with remaining cervical stump; Z98.890 Other specified postprocedural states; Z88.2 Allergy status to sulfonamides
CPT/HCPCS: 74176; 81001; 99285; Q0162

== ENCOUNTER 2019-02-06 10:38 | Emergency (ER) | payer MEDICARE ==
[~2019-02-06] VITALS: Ht 160 cm; Wt 65.8 kg
--- NOTE | 2019-02-06 12:28 | PHYS DOC ---
Past Medical History Past Medical History: Constipation, Dementia, Diverticulitis, Hypertension, Pancreatitis Additional Past Medical Histor: Pancreatitis. Abdominal hernia - scheduled for surgery on 02/18/19. Past Surgical History: Hysterectomy, Tonsillectomy, Other Additional Past Surgical Histo: partial hysterectomy, hernia repair Alcohol Use: None Drug Use: None Adult General Chief Complaint Chief Complaint: RIB PAIN HPI HPI Patient is a 78-year-old female who presents to the emergency department for evaluation. She states that she fell yesterday, does not know exactly how she fell but thinks her feet got tangled up in each other. She states that she fell and seems to have injured her RIGHT chest, but this morning awakened with left- sided chest wall pain, significantly worse with palpation and deep breathing. She denies any dizziness or lightheadedness leading to her fall, current dizziness, numbness, weakness, or shortness of breath. She has not had any other chest pain other than related to her left chest wall. She does not know how she exactly injured her left chest wall. There are no alleviating or exacerbating factors to her symptoms. Review of Systems Review of Systems Constitutional: Denies fever or chills [] Eyes: Denies change in visual acuity, redness, or eye pain [] HENT: Denies nasal congestion or sore throat [] Respiratory: Denies cough or shortness of breath [] Cardiovascular: No additional information not addressed in HPI [] GI: Denies nausea, vomiting, bloody stools or diarrhea. Reports chronic lower abdominal pain related to her hernia which is scheduled for surgical repair in 2 weeks. [] : Denies dysuria or hematuria [] Musculoskeletal: Denies back pain or joint pain [] Integument: Denies rash or skin lesions [] Neurologic: Denies headache, focal weakness or sensory changes [] Endocrine: Denies polyuria or polydipsia [] All other systems were reviewed and found to be within normal limits, except as documented in this note. Current Medications Current Medications Current Medications Medications (Trade) Dose Ordered Sig/Bob Start Time Stop Time Status Last Admin Dose Admin Hydromorphone HCl (Dilaudid) 1 mg 1X ONCE 02/06/19 12:30 02/06/19 12:31 DC 02/06/19 12:47 1 MG Allergies Allergies Allergies Coded Allergies Type Severity Reaction Last Updated Verified Sulfa (Sulfonamide Antibiotics) Adverse Reaction Intermediate Nausea and Vomiting 9/15/18 Yes Physical Exam Physical Exam PHYSICAL EXAM: CONSTITUTIONAL: Well developed, well nourished HEAD: normocephalic, atraumatic EENT: PERRL, EOMI. Conjunctivae normal color, sclerae non-icteric; moist mucous membranes. NECK: Supple, non-tender; no meningismus. LUNGS: Lungs CTA, breathing even and unlabored. Normal air movement. HEART: Regular rate and rhythm, no murmur CHEST: No deformity; there is tenderness to palpation to the left lateral chest wall, questionable crepitus anteriorly/laterally. The remainder the chest wall soft and non-tender. There is no noted bruising. ABDOMEN: The abdomen is soft, there is mild diffuse tenderness to palpation to the lower abdomen, without focal tenderness, rebound, or guarding, demented abdomen is soft and non-tender, the upper abdomen, including the left upper quadrant, is nontender. No masses or bruits. EXTREM: Normal ROM; no deformity, no calf tenderness. Normal pulses palpable in all extremities. There is no pedal edema. SKIN: No rash; no diaphoresis NEURO: Alert; normal speech and cognition; CN's grossly intact; strength grossly intact without focal deficit. BACK: No CVA TTP. Current Patient Data Vital Signs Vital Signs Date Time Temp Pulse Resp B/P (MAP) Pulse Ox O2 Delivery O2 Flow Rate FiO2 02/06/19 12:47 22 99 Room Air 02/06/19 10:48 97.9 67 168/79 (108) 97.9 EKG EKG [Normal sinus rhythm at a rate of 65 beats for minute, normal axis, normal intervals. There are no acute ischemic ST/T changes.] Radiology/Procedures Radiology/Procedures PROCEDURE: RIBS LEFT AND PA CHEST Left RIBS with chest, 3 views, 02/06/2019: HISTORY: Fall, rib pain No left rib fracture is identified. There is no evidence of underlying pneumothorax, hemothorax or pulmonary infiltrate. A calcified granuloma is present in the left lung. The heart size is normal. IMPRESSION: No acute left rib abnormality is detected. [] Course & Med Decision Making Course & Med Decision Making Pertinent studies reviewed. (See chart for details) []1:55 PM:Patient remains stable. I discussed test results, the need for close follow-up, and return precautions. The patient still has some pain with movement, but no other pain. The pain medication did significantly improve her symptoms. Dragon Disclaimer Dragon Disclaimer This electronic medical record was generated, in whole or in part, using a voice recognition dictation system. Departure Departure Impression: Primary Impression: Chest wall pain Disposition: 01 HOME, SELF-CARE Condition: STABLE Referrals: NO PCP (PCP) Patient Instructions: Chest Wall Pain, Rib Contusion Scripts Oxycodone/Apap 5-325 (PERCOCET 5-325 MG TABLET ) 1 Each Tablet 1 TAB PO PRN Q6HRS PRN for PAIN, #10 TAB 0 Refills Prov: MAMI COONEY MD 02/06/19 MAMI COONEY MD February 06, 2019 12:28
[2019-02-06] MEDS ORDERED: HYDROmorphone 2 MG/ML VIAL IM ONE (12:30)
--- NOTE | 2019-02-06 12:50 | RAD ---
Left RIBS with chest, 3 views, 02/06/2019: HISTORY: Fall, rib pain No left rib fracture is identified. There is no evidence of underlying pneumothorax, hemothorax or pulmonary infiltrate. A calcified granuloma is present in the left lung. The heart size is normal. IMPRESSION: No acute left rib abnormality is detected. Electronically signed by: Star Baker MD (02/06/2019 12:47 PM) [facility]
[2019-02-06] MEDS ORDERED: OXYC1TAB15 PO (13:57)
--- NOTE | 2019-02-06 14:22 | EKG ---
[facility] [address] [place] [address] Test Date: 2019-02-06 Test Time: 10:47:13 Pat Name: ROB MENEZES Department: Room: Gender: F Portrait Studio Photographer: : 1940 Requested By: MAMI COONEY Order Number: [id number] Reading MD: Omar Abdalla Measurements Intervals [place] Rate: 65 P: 53 MO: 154 QRS: 3 QRSD: 76 T: 54 QT: 396 QTc: 417 Interpretive Statements SINUS RHYTHM NONSPECIFIC ST-T WAVE CHANGES. Electronically Signed On 02-08-2019 9:55:06 CDT by Omar Abdalla
[2019-02-06 14:30] VITALS: BP 104/57
== END 2019-02-06 14:33 | disposition home or self-care (01) ==
LOC: ER 10:38
DX: R07.89 Other chest pain (principal); G89.29 Other chronic pain; R10.30 Lower abdominal pain, unspecified; I10 Essential (primary) hypertension; Z90.710 Acquired absence of both cervix and uterus; Z90.89 Acquired absence of other organs; Z88.2 Allergy status to sulfonamides; W18.39XA Other fall on same level, initial encounter; Y93.89 Activity, other specified; Y92.89 Other specified places as the place of occurrence of the external cause; Y99.8 Other external cause status
CPT/HCPCS: 71101; 93005; 96372; 99284; J1170

== ENCOUNTER 2019-04-13 18:28 | Emergency (ER) | payer MEDICARE ==
[~2019-04-13] VITALS: Ht 165.1 cm; Wt 65.8 kg
[~2019-04-13 18:28] MED LIST changes: +OXYC1TAB15 PO; -PANT40TA5 PO; +PANT40TA77 PO
[2019-04-13 18:40] VITALS: BP 104/57
[2019-04-13] MEDS ORDERED: DIPHTH,PERTUSS(ACELL),TET TOX 0.5 ML DISP.SYRIN. VAX IM ONE (19:15)
[2019-04-13] MEDS ORDERED: AMOX1TAB61 PO (19:16)
--- NOTE | 2019-04-13 19:18 | PHYS DOC ---
Past Medical History Past Medical History: Constipation, Dementia, Diverticulitis, Hypertension, Pancreatitis Additional Past Medical Histor: Pancreatitis. Abdominal hernia - scheduled for surgery on 02/18/19. Past Surgical History: Hysterectomy, Tonsillectomy, Other Additional Past Surgical Histo: partial hysterectomy, hernia repair Additional Information: nonsmoker Alcohol Use: None Drug Use: None Adult General Chief Complaint Chief Complaint: ANIMAL BITE HPI HPI Patient is a 78-year-old female who presents with a dog bite on her left index finger. 3 days ago she buried her and was left with her 's toy ramirez terrier dog. The toy ramirez terrier attacked her josé and when she intervened she got bit in the left index finger. She is not sure which dog bit her. She reports that the 3 gashes on her index finger bled significantly, but she is having no pain or reduced ROM. She denies fever or chills. There is no bruising or swelling on her finger. Both dogs are up-to-date on vaccinations. She does not remember when her last tetanus shot was. Review of Systems Review of Systems Constitutional: Denies fever or chills Eyes: Denies redness or eye pain HENT: Denies nasal congestion or sore throat Respiratory: Denies cough or shortness of breath Cardiovascular: Denies chest pain or palpitations GI: Denies abdominal pain, nausea, or vomiting : Denies dysuria or hematuria Musculoskeletal: Denies back pain or joint pain Integument: Denies rash, reports skin lesions Neurologic: Denies headache, focal weakness or sensory changes Complete systems were reviewed and found to be within normal limits, except as documented in this note. Current Medications Current Medications Current Medications Medications (Trade) Dose Ordered Sig/Bob Start Time Stop Time Status Last Admin Dose Admin Amoxicillin/ Clavulanate Potassium (Augmentin 875/ 125mg) 1 tab 1X ONCE 04/13/19 19:45 04/13/19 19:46 Diphtheria/ Tetanus/Acell Pertussis (Boostrix) 0.5 ml ONCE ONCE 04/13/19 19:15 04/13/19 19:16 UNV Neomycin/ Polymyxin/ Bacitracin (Triple Antibiotic Ointment) 1 pkt 1X ONCE 04/13/19 19:45 04/13/19 19:46 Allergies Allergies Allergies Coded Allergies Type Severity Reaction Last Updated Verified Sulfa (Sulfonamide Antibiotics) Adverse Reaction Intermediate Nausea and Vomiting 06/23/18 Yes Physical Exam Physical Exam Constitutional: Well developed, well nourished, no acute distress, non-toxic appearance HENT: Normocephalic, atraumatic, oropharynx moist Eyes: PERRL, EOMI, conjunctiva normal, no discharge Neck: Normal range of motion, no tenderness, supple Cardiovascular: Heart rate normal, regular rhythm Lungs & Thorax: Bilateral breath sounds clear to auscultation, no wheezing Abdomen: Soft, no tenderness Skin: Warm, dry, no erythema, no rash Back: No tenderness, no CVA tenderness Extremities: No tenderness, ROM intact, no edema, three non-puncture wounds on left index finger around the proximal interphalangeal joint with no erythema, or edema. Finger ROM intact. Skin wounds gape open and bleed on full finger flexion. No tenderness to palpation Neurologic: Alert and oriented X 3, normal motor function, normal sensory function, no focal deficits noted Psychologic: Affect normal, judgement normal, mood normal Current Patient Data Vital Signs Vital Signs Date Time Temp Pulse Resp B/P (MAP) Pulse Ox O2 Delivery O2 Flow Rate FiO2 04/13/19 18:40 98.9 84 16 104/57 (73) 95 Room Air 98.9 EKG EKG [] Radiology/Procedures Radiology/Procedures [] Course & Med Decision Making Course & Med Decision Making Ms. Barreto is a 78-year-old female who presents with dog bite to left index finger. Her 's dog (ana ramirez terrier) attacked her [facility] today and she was bit trying to intervene. She has three gashes on her left index finger without pain. On physical exam she has three non-puncture wounds around the p roximal interphalangeal joint that bleed with finger motion. She has no tenderness to palpation, no erythema, no edema and ROM is intact. The wound is cleaned with sterile gauze and she is placed in a finger splint to allow healing of the wounds. She is prescribed Augmentin for infection prophylaxis and instructed to keep the wound clean. Patient stable for discharge with outpatient follow-up with PCP. Discussed findings and plan with patient and family, who acknowledge understanding and agreement. Dragon Disclaimer Dragon Disclaimer This electronic medical record was generated, in whole or in part, using a voice recognition dictation system. Splinting Splinting : Location: Left index finger Pre-Made Type: metal (finger splint) Pre-Proc Neuro Vasc Exam: normal Post-Proc Neuro Vasc Exam: normal, unchanged from pre-exam Departure Departure Impression: Primary Impression: Dog bite of finger Disposition: 01 HOME, SELF-CARE Condition: STABLE Referrals: CHAPARRO RAMIRES MD (PCP) Patient Instructions: Animal Bite, [id number] Additional Instructions: Do not soak your wound. You may shower. Clean wound daily with soap and water. Change dressing 2 times daily. Use over the counter antibiotic ointment with each dressing change. Scripts Amoxicillin/Potassium Clav (AUGMENTIN 875-125 TABLET) 1 Each Tablet 1 TAB PO BID, #14 TAB Prov: SAUNDRA CULP DO 04/13/19 Problem Qualifiers Primary Impression: Dog bite of finger Encounter type: initial encounter Qualified Codes: S61.259A - Open bite of unspecified finger without damage to nail, initial encounter; W54.0XXA - Bitten by dog, initial encounter SAUNDRA CULP DO Apr 13, 2019 19:18
[2019-04-13] MEDS ORDERED: NEOMY/BACITR/POLYMYXIN OINT PACKET. TP ONE (19:45)
[2019-04-13] MEDS ORDERED: AMOXICILLIN/K CLAV 875/125MG TABLET. PO ONE (19:45)
== END 2019-04-13 19:34 | disposition home or self-care (01) ==
LOC: ER 18:28
DX: S61.251A Open bite of left index finger without damage to nail, initial encounter (principal); I10 Essential (primary) hypertension; F03.90 Unspecified dementia, unspecified severity, without behavioral disturbance, psychotic disturbance, mood disturbance, and anxiety; Z88.2 Allergy status to sulfonamides; W54.0XXA Bitten by dog, initial encounter; Y93.89 Activity, other specified; Y92.89 Other specified places as the place of occurrence of the external cause; Y99.8 Other external cause status
CPT/HCPCS: 29130; 90471; 90715; 99284

== ENCOUNTER 2020-11-25 16:23 | Emergency (ER) | payer MEDICARE ==
[~2020-11-25] VITALS: Ht 162.6 cm; Wt 63.6 kg
[~2020-11-25 16:23] MED LIST changes: +AMOX1TAB61 PO; -ASPI-612 PO; +ASPI-886 PO; +HYDR-3107 PO; -HYDR10TA66 PO; +LISI10TA16 PO; -LISI10TA2 PO
[2020-11-25 16:30] VITALS: BP 188/82
--- NOTE | 2020-11-25 18:03 | RAD ---
EXAM: CT CHEST WITHOUT CONTRAST HISTORY: Fell one week ago, chest pain COMPARISON: CTA chest 09/02/2020 TECHNIQUE: Helical CT of the chest performed without contrast. Coronal and sagittal reformats were o btained. One or more of the following individualized dose reduction techniques were utilized for this examinat ion: 1. Automated exposure control 2. Adjustment of the mA and/or kV according to patient size 3. Use of iterative reconstruction technique. FINDINGS: Thyroid gland and thoracic inlet: Unremarkable. Heart and great vessels: Heart is normal in size. No pericardial effusion. The ascending thoracic aor ta is at the upper limit of normal caliber measuring 4 cm in diameter. There is mild calcified aortic atherosclerosis. Mediastinum and araceli: There are calcified mediastinal and hilar lymph nodes. Lungs and pleura: There is calcified granuloma in the left lower lobe. A 3 mm pulmonary nodule in the left upper lobe is unchanged. No pleural effusion or pneumothorax. Chest wall and axillae: No axillary lymphadenopathy. Upper abdomen: There are calcified splenic and hepatic granulomas. Bones: No acute osseous abnormality. Unchanged mild degenerative disc disease. IMPRESSION: 1. No acute cardiopulmonary abnormality or acute fracture. 2. Upper limit of normal caliber ascending thoracic aorta measuring 4 cm in diameter. 3. Sequela of granulomatous disease. Electronically signed by: Kamryn Curtis MD (11/25/2020 6:00 PM) [id number]
[2020-11-25] MEDS ORDERED: MORPHINE SULFATE 2 MG/ML VIAL. IM ONE (18:15)
[2020-11-25] MEDS ORDERED: MORPHINE SULFATE 2 MG/ML VIAL. IV/SQ PRN (18:30)
--- NOTE | 2020-11-25 19:05 | PHYS DOC ---
Past Medical History Past Medical History: Constipation, Dementia, Diverticulitis, Hypertension, Pancreatitis Additional Past Medical Histor: Pancreatitis. Abdominal hernia - scheduled for surgery on 02/18/19. Past Surgical History: Hysterectomy, Tonsillectomy, Other Additional Past Surgical Histo: partial hysterectomy, hernia repair Smoking Status: Never Smoker Alcohol Use: None Drug Use: None General Adult EDM: Chief Complaint: CHEST PAIN HPI: HPI: Patient is a 80 year old female with history of hypertension, dementia, who presents to the ED today complaining of 7 out of 10 left-sided chest pain that began 1 or 2 weeks ago after she fell. Patient states she slipped on ice, fell, she states she hit her chest on ice. Denies any loss of consciousness, denies any head or neck pain. Patient states the pain is worse on touching the chest region. Review of Systems: Review of Systems: Constitutional: Denies fever or chills. [] Eyes: Denies change in visual acuity. [] HENT: Denies nasal congestion or sore throat. [] Respiratory: Denies cough or shortness of breath. [] Cardiovascular: Reports left-sided chest pain GI: Denies abdominal pain, nausea, vomiting, bloody stools or diarrhea. [] : Denies dysuria. [] Musculoskeletal: Denies back pain or joint pain. [] Integument: Denies rash. [] Neurologic: Denies headache, focal weakness or sensory changes. [] Psychiatric: Denies depression or anxiety. [] Heart Score: Risk Factors: Risk Factors: DM, Current or recent (<one month) smoker, HTN, HLP, family history of CAD, obesity. Risk Scores: Score 0 - 3: 2.5% MACE over next 6 weeks - Discharge Home Score 4 - 6: 20.3% MACE over next 6 weeks - Admit for Clinical Observation Score 7 - 10: 72.7% MACE over next 6 weeks - Early Invasive Strategies Current Medications: Current Medications Medications (Trade) Dose Ordered Sig/Bob Start Time Stop Time Status Last Admin Dose Admin Morphine Sulfate (Morphine Sulfate) 2 mg PRN Q15MIN PRN 11/25/20 18:30 11/26/20 18:29 Allergies: Allergies: Allergies Coded Allergies Type Severity Reaction Last Updated Verified No Known Medication Allergies Allergy Unknown 08/31/20 Yes Sulfa (Sulfonamide Antibiotics) Adverse Reaction Intermediate Nausea and Vomiting 06/23/18 Yes Physical Exam: PE: Constitutional: Well developed, well nourished, no acute distress, non-toxic appearance. [] HENT: Normocephalic, atraumatic, bilateral external ears normal, oropharynx moist, no oral exudates, nose normal. [] Eyes: PERRLA, EOMI, conjunctiva normal, no discharge. [] Neck: Normal range of motion, no tenderness, supple, no stridor. [] Cardiovascular:Heart rate regular rhythm, no murmur [] Lungs & Thorax: Bilateral breath sounds clear to auscultation [] Abdomen: Bowel sounds normal, soft, no tenderness, no masses, no pulsatile masses. [] Skin: Warm, dry, no erythema, no rash. [] Back: No tenderness, no CVA tenderness. [] Extremities: No tenderness, no cyanosis, no clubbing, ROM intact, no edema. [] Neurologic: Alert and oriented X 3, normal motor function, normal sensory function, no focal deficits noted. [] Psychologic: Affect normal, judgement normal, mood normal. [] Current Patient Data: Vital Signs: Vital Signs Date Time Temp Pulse Resp B/P (MAP) Pulse Ox O2 Delivery O2 Flow Rate FiO2 11/25/20 16:30 97.5 66 20 188/82 (117) 97 Room Air 97.5 EKG: EK interpreted by Dr. Epps sinus rhythm heart rate 78 no STEMI [] Radiology/Procedures: Radiology/Procedures: []PROCEDURE: CT CHEST WO CONTRAST EXAM: CT CHEST WITHOUT CONTRAST HISTORY: Fell one week ago, chest pain COMPARISON: CTA chest 09/02/2020 TECHNIQUE: Helical CT of the chest performed without contrast. Coronal and sagittal reformats were obtained. One or more of the following individualized dose reduction techniques were utilized for this examination: 1. Automated exposure control 2. Adjustment of the mA and/or kV according to patient size 3. Use of iterative reconstruction technique. FINDINGS: Thyroid gland and thoracic inlet: Unremarkable. Heart and great vessels: Heart is normal in size. No pericardial effusion. The ascending thoracic aorta is at the upper limit of normal caliber measuring 4 cm in diameter. There is mild calcified aortic atherosclerosis. Mediastinum and araceli: There are calcified mediastinal and hilar lymph nodes. Lungs and pleura: There is calcified granuloma in the left lower lobe. A 3 mm pulmonary nodule in the left upper lobe is unchanged. No pleural effusion or pneumothorax. Chest wall and axillae: No axillary lymphadenopathy. Upper abdomen: There are calcified splenic and hepatic granulomas. Bones: No acute osseous abnormality. Unchanged mild degenerative disc disease. IMPRESSION: 1. No acute cardiopulmonary abnormality or acute fracture. 2. Upper limit of normal caliber ascending thoracic aorta measuring 4 cm in diameter. 3. Sequela of granulomatous disease. Electronically signed by: Kamryn Curtis MD (11/25/2020 6:00 PM) [id number] DICTATED and SIGNED BY: KAMRYN CURTIS MD DATE: 11/25/20 [id number] Course & Med Decision Making: Course & Med Decision Making Pertinent Labs and Imaging studies reviewed. (See chart for details) This is a 80-year-old female patient presenting to the ED today complaining of chest pain that began 1 or 2 weeks ago after falling. EKG is negative, CT of th e chest is negative. This patient has been seen in our ED numerous times for chest pain. She was discharged to home. 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 Tru Disclaimer: Tru Disclaimer: This electronic medical record was generated, in whole or in part, using a voice recognition dictation system. Departure Departure Impression: Primary Impression: Fall from standing Qualified Codes: W19.XXXA - Unspecified fall, initial encounter Additional Impression: Chest pain Qualified Codes: R07.9 - Chest pain, unspecified Disposition: 01 DC HOME SELF CARE/HOMELESS Condition: STABLE Referrals: CHAPARRO RAMIRES MD (PCP) Follow-up in the course of this week Patient Instructions: Chest Pain (Nonspecific), Fall Prevention and Home Safety Additional Instructions: You were evaluated in the emergency room for chest pain. Your CAT scan of the chest is negative for any acute findings. Please follow-up with your own doctor in 1 to 2 weeks. JORGE MAX APRN Nov 25, 2020 19:05
[2020-11-25 19:09] LABS: BILIRUBIN,URINE NEGATIVE (NEG); CLARITY,URINE CLEAR; COLOR,URINE YELLOW; NITRITE,URINE NEGATIVE (NEG); PH,URINE 6.5 (<5.0-8.0); PROTEIN,URINE NEGATIVE (NEG-TRACE); UROBILINOGEN,URINE 0.2 mg/dL (0.2 mg/dL)
[2020-11-25 19:17] LABS: BARBITURATES NEG (NEG); BENZODIAZEPINES NEG (NEG); CANNABINOIDS NEG (NEG); COCAINE NEG (NEG); METHADONE NEG (NEG); OPIATES POS (NEG); PHENCYCLIDINE NEG (NEG)
[2020-11-25 19:18] LABS: AMPHETAMINE/METHAMPHETAMINE NEG (NEG)
[2020-11-25 19:21] LABS: HYALINE CASTS, URINE OCCASIONAL /HPF
[2020-11-25 19:24] LABS: BACTERIA,URINE 0 /HPF (0-FEW); RBC,URINE 0 /HPF (0-2); WBC,URINE 0 /HPF (0-4)
--- NOTE | 2020-11-26 03:07 | EKG ---
[facility] [address] [place] [address] Test Date: 2020-11-25 Test Time: 16:39:56 Pat Name: ROB MENEZES Department: Room: Gender: F Medical Imaging Specialist: : 1940 Requested By: JORGE MAX Order Number: [id number] Reading MD: Measurements Intervals [place] Rate: 73 P: 41 SC: 138 QRS: -8 QRSD: 80 T: 61 QT: 394 QTc: 438 Interpretive Statements SINUS RHYTHM VENTRICULAR PREMATURE COMPLEX(ES) ATRIAL PREMATURE COMPLEX(ES) LEFTWARD AXIS ABNORMAL ECG RI6.01 No previous ECG available for comparison
== END 2020-11-25 19:38 | disposition home or self-care (01) ==
LOC: ER 16:23
DX: G89.11 Acute pain due to trauma (principal); R07.89 Other chest pain; F03.90 Unspecified dementia, unspecified severity, without behavioral disturbance, psychotic disturbance, mood disturbance, and anxiety; I10 Essential (primary) hypertension; Z79.899 Other long term (current) drug therapy; Z90.710 Acquired absence of both cervix and uterus; Z90.89 Acquired absence of other organs; Z98.890 Other specified postprocedural states; Z88.2 Allergy status to sulfonamides; W18.39XA Other fall on same level, initial encounter; Y93.89 Activity, other specified; Y92.89 Other specified places as the place of occurrence of the external cause; Y99.8 Other external cause status
CPT/HCPCS: 71250; 80307; 81001; 93005; 96372; 99285; J2270

== ENCOUNTER → 2021-03-22 | Outpatient (CLI) | payer MEDICARE ==
[2021-02-17 11:00] VITALS: BP 154/72
[~2021-03-22] MED LIST changes: +REGADENOSON 0.4 MG/5 ML DISP.SYRIN. IV ONE
--- NOTE | 2021-03-24 10:38 | RAD ---
MR#: [id number] Date of Study: 03/22/2021 Ordering Physician: MARCELA ABDALLA, Referring Physician: ANABEL LEMA Tech: RT Brad Caro) (N) APPROVED REPORT Test Type: Pharmacological Stress Nurse/Tech: Mirta Spears RN Test Indications: CHF Cardiac History: See Electronic Medical Record Medications: See Electronic Medical Record Medical History: See Electronic Medical Record Resting ECG: SR with PVC's Resting Heart Rate: 69 bpm Resting Blood Pressure: 132/74mmHg Pretest Chest Pain: No chest pain Nurse/Tech Notes S1S2, Lungs Clear Consent: The procedure was explained to the patient in lay terms. Informed consent was witnessed. Ace eout was entered into [employer]. History and Stress Test performed by RT Brad Caro) (N) Pharm. Details Pharmacologic stress testing was performed using 0.4mg per 5ml of regadenoson given intravenously ove r 7-10 seconds. Stress Symptoms No chest pain or symptoms. POST EXERCISE Reason for Termination: Infusion complete Max HR: 86 bpm Max Blood Pressure: 149/73mmHg Blood Pressure response to exercise: Normal blood pressure response during stress. Heart Rate response to exercise: WNL Chest Pain: No. Arrhythmia: No. ST Change: No. INTERPRETATION Stress EKG Conclusion: The resting EKG shows a sinus rhythm and mild nonspecific ST segment changes. The stress EKG shows no significant changes from baseline. No EKG evidence of stress-induced ischemia. Imaging Protocol IMAGE PROTOCOL: Rest Tc-99m/stress Tc-99m 1 day Rest: Stress: Viability: Radiopharm.Tc99m [id number] Sestamibi Dose10.9mCi 31.9mCi Duration 13min. 13min. Img Date 03/22/2021 03/22/2021 Inj-Img [id number]. 60min. Rest Admin Site:IV - Right WristAdministrator:RT Vania (Chip)(N) Stress Admin Site: IV - Right WristAdministrator: RT Brad Caro)(N) STRESS DATA End Diast. Vol.77.0mlLVEDV index BSA44.0ml End Syst. Vol.18.0mlLVESV index BSA10.0ml Myocardial Mgan140.0gEject. Jftbouug48.0% Stress Scores Regional WT0.00Summed WT0.00 Regional WM0.00Summed WM0.00 LV Perfusion The stress scans show no significant defects. The rest scans show no significant defects. Nuclear imaging shows no reversible ischemia or infarct. Wall Motion Left ventricular systolic function is normal with no regional wall motion abnormalities and an ejecti on fraction of greater than 70%. LV Perf. Quant 17 Seg. SSS0.00 17 Seg. SRS0.00 17 Seg. SDS0.00 Stress Defect Extent (% LAD)0.00Rest Defect Extent (% LAD)0.00Rev. Defect Extent (% LAD)0.00 Stress Defect Extent (% LCX) 0.00Rest Defect Extent (% LCX)15.00Rev. Defect Extent (% LCX)0.00 Stress Defect Extent (% RCA)0.00Rest Defect Extent (% RCA)0.00Rev. Defect Extent (% RCA)0.00 Stress Defect Extent (% BILL)0.00Rest Defect Extent (% BILL)2.60Rev. Defect Extent (% BILL)0.00 Conclusion 1. No EKG evidence of stress-induced ischemia. 2. Nuclear imaging shows no reversible ischemia or infarct. 3. Normal left ventricular systolic function with an ejection fraction of greater than 70%. 4. Low risk Lexiscan nuclear stress test. Signed by : Marcela Abdalla MD Electronically Approved : 03/24/2021 10:38:09
== END ==
LOC: NM 09:25
PROVIDERS: ATTEND Internal Medicine Cardiovascular Disease
DX: R07.9 Chest pain, unspecified (principal)
CPT/HCPCS: 78452; 93017; A9500; J2785

== ENCOUNTER → 2021-06-08 | Outpatient (CLI) | payer MEDICARE ==
[2021-02-17 11:00] VITALS: BP 154/72
[~2021-06-08] MED LIST changes: +CELE200C PO; +CYCL10TA2 PO; +HYDR-2761 PO; +MELO7.5T5 PO; +MULT-245 PO; +OMEG1CAP27 PO; -REGADENOSON 0.4 MG/5 ML DISP.SYRIN. IV ONE
[2021-06-08 15:23] LABS: BASO # 0.1 x10^3/uL (0.0-0.2); BASO % 1 % (0-3); EOS # 0.1 x10^3/uL (0.0-0.7); EOS % 2 % (0-3); HEMATOCRIT 37.5 % (36.0-47.0); HEMOGLOBIN 12.8 g/dL (12.0-15.5); LYMPH # 1.7 x10^3/uL (1.0-4.8); LYMPH % 29 % (24-48); MEAN CORPUSCULAR HEMOGLOBIN 31 pg (25-35); MEAN CORPUSCULAR HGB CONC 34 g/dL (31-37); MEAN CORPUSCULAR VOLUME 90 fL (79-100); MONO # 0.5 x10^3/uL (0.0-1.1); MONO % 9 % (0-9); NEUT # 3.7 x10^3/uL (1.8-7.7); NEUT % 61 % (31-73); PLATELET COUNT 218 x10^3/uL (140-400); RED BLOOD COUNT 4.16 x10^6/uL (3.50-5.40); RED CELL DISTRIBUTION WIDTH 12.6 % (11.5-14.5); WHITE BLOOD COUNT 6.1 x10^3/uL (4.0-11.0)
[2021-06-08 15:27] LABS: CALCIUM 9.3 mg/dL (8.5-10.1); CREATININE 1.1 mg/dL (0.6-1.0); GFR 47.6; POTASSIUM 4.4 mmol/L (3.5-5.1)
[2021-06-08 15:29] LABS: PROTHROMBIN TIME PATIENT 12.5 SEC (11.7-14.0)
[2021-06-10 00:24] LABS: HEMOGLOBIN A1C 5.1 % (4.8-5.6)
== END ==
LOC: SURGPAT 14:10
PROVIDERS: ATTEND Orthopaedic Surgery
DX: Z01.818 Encounter for other preprocedural examination (principal); M19.012 Primary osteoarthritis, left shoulder
CPT/HCPCS: 36415; 80048; 82040; 82306; 83036; 85025; 85610; 85651; 85730; 87641

== ENCOUNTER → 2021-08-10 | Outpatient (CLI) | payer MEDICARE ==
[2021-07-29 15:00] VITALS: BP 112/59
[~2021-08-10] MED LIST changes: +CYCL10TA19 PO; -CYCL10TA2 PO; +FAMO20TA5 PO; +OXYC5CAP PO; +SERT-268 PO
[2021-08-10 15:54] LABS: BASO % 1 % (0-3); EOS # 0.1 x10^3/uL (0.0-0.7); EOS % 1 % (0-3); HEMATOCRIT 34.2 % (36.0-47.0); HEMOGLOBIN 11.4 g/dL (12.0-15.5); LYMPH # 1.1 x10^3/uL (1.0-4.8); LYMPH % 16 % (24-48); MEAN CORPUSCULAR HEMOGLOBIN 30 pg (25-35); MEAN CORPUSCULAR HGB CONC 33 g/dL (31-37); MEAN CORPUSCULAR VOLUME 91 fL (79-100); MONO # 0.6 x10^3/uL (0.0-1.1); MONO % 8 % (0-9); NEUT # 5.1 x10^3/uL (1.8-7.7); NEUT % 73 % (31-73); PLATELET COUNT 229 x10^3/uL (140-400); RED BLOOD COUNT 3.75 x10^6/uL (3.50-5.40); RED CELL DISTRIBUTION WIDTH 13.5 % (11.5-14.5); WHITE BLOOD COUNT 6.9 x10^3/uL (4.0-11.0)
[2021-08-10 16:05] LABS: ALBUMIN 3.9 g/dL (3.4-5.0); CREATININE 0.8 mg/dL (0.6-1.0); GFR 68.7; POTASSIUM 3.6 mmol/L (3.5-5.1)
[2021-08-10 16:09] LABS: PROTHROMBIN TIME PATIENT 11.9 SEC (11.7-14.0)
== END ==
LOC: SURGPAT 14:50
PROVIDERS: ATTEND Orthopaedic Surgery
DX: M19.012 Primary osteoarthritis, left shoulder (principal); Z01.818 Encounter for other preprocedural examination
CPT/HCPCS: 36415; 80048; 82040; 82306; 83036; 85025; 85610; 85651; 85730; 87641

== ENCOUNTER 2021-08-17 07:30 | Observation (INO) | payer MEDICARE ==
[2021-06-08 14:07] VITALS: BP 165/85
[2021-08-10 15:00] VITALS: BP 151/69
[2021-08-17] VITALS (11 sets, daily range): BP systolic 108–166; BP diastolic 52–78
[~2021-08-17] VITALS: Ht 157.5 cm; Wt 70.0 kg
[~2021-08-17 07:30] MED LIST changes: +ACETAMINOPHEN 500 MG TABLET PO PRN; -FAMO20TA5 PO; +GABAPENTIN 300 MG CAPSULE. PO PRN; +HYDROmorphone 2 MG/ML VIAL IVP PRN; +IV RINGERS,LACTATED 1000ML 1,000 ML IV SCH; +MELOXICAM 7.5 MG TABLET PO PRN; +MORPHINE SULFATE 2 MG/ML INJ. IVP PRN; -OXYC5CAP PO; +PROCHLORPERAZINE 10 MG/2 ML VIAL. IVP PRN; -SERT-268 PO; +TRANEXAMIC ACID 1,000 MG in IV NS 50ML -- 1ST BAG INJ ONE; +ceFAZolin SODIUM IV Push 1 GM VIAL. IVP PRN; +fentaNYL PF VIAL 100 MCG/2 ML VIAL IVP PRN
[2021-08-17] MEDS ORDERED: TRANEXAMIC ACID 1,000 MG in IV NS 50ML -- 2ND BAG INJ ONE (08:00)
[2021-08-17] MEDS ORDERED: VANCOMYCIN 1 GM VIAL. ONE (08:11)
[2021-08-17] MEDS ORDERED: FAMO20TA5 PO (08:12)
[2021-08-17] MEDS ORDERED: SERT-268 PO (08:12)
--- NOTE | 2021-08-17 08:15 | HP ---
DATE OF SERVICE: 08/17/2021 ADMIT DATE: 08/17/2021 PREOPERATIVE HISTORY AND PHYSICAL CHIEF COMPLAINT: Left shoulder pain. HISTORY OF PRESENT ILLNESS: The patient is an 81-year-old female with a long history of left shoulder pain and degenerative disease. She had at her last visit gotten no relief from corticosteroid injection or other nonoperative measures. I have previously discussed a total shoulder arthroplasty with her. She previously expressed interest in proceeding with a shoulder arthroplasty given her severe pain and limitations of activities of daily living and requiring chronic pain medications. PAST MEDICAL HISTORY: Significant for some mild dementia, hyperlipidemia, hypertension. PAST SURGICAL HISTORY: Bladder suspension, hemorrhoid surgery, hernia surgery x 2, partial hysterectomy and previous colon surgery. FAMILY HISTORY: Significant for Alzheimer's in her father, cancer in her mother, they are both . SOCIAL HISTORY: Denies smoking, alcohol or drug use and her son with some disabilities had just early in the summer. She is accompanied by another son today. ALLERGIES: INCLUDE STATIN DRUGS AND SULFA. REVIEW OF SYSTEMS: Negative for any chest pain, shortness of breath, recent febrile illness, focal weakness, numbness, tingling, or other constitutional symptoms. She does continue to have severe left shoulder pain and weakness. PHYSICAL EXAMINATION: VITAL SIGNS: Per admission sheet. HEENT: Atraumatic, normocephalic. HEART: Regular rate and rhythm. LUNGS: Clear to auscultation bilaterally. ABDOMEN: Benign. EXTREMITIES: Examination of the left shoulder, her active elevation limited to about 35 degrees and passive motion is just short of 90 degrees. She has full motion of her right shoulder, bilateral elbows and wrists. Very weak and any resisted motion in any plane. on the left, but normal strength on the right. Normal alignment, stability, bilateral elbows and wrists with intact motor function, distal pulses, sensation, reflexes, skin in both upper extremities throughout. LABORATORY DATA: X-rays show severe glenohumeral joint arthropathy on the left and some superior migration of the humeral head. IMPRESSION: Left shoulder osteoarthritis and likely rotator cuff arthropathy. She certainly has symptoms of pseudoparalysis indicative. TREATMENT PLAN: I had previously gone over with her and her family members the possibility of ongoing treatment options with mitigating measures and activity modification versus the possibility of reverse shoulder arthroplasty and the possibility of continued pain, infection, nerve or blood vessel damage, instability, premature wear or loosening, medical or other anesthetic complications among others. All her questions were answered as well as of her son today. She does wish to proceed with surgical evaluation and treatment, which will include [facility] observation to follow. NADINE DR: Jenny TID: [id number]
[2021-08-17] MEDS ORDERED: LIDOCAINE 1% PF 5 ML VIAL. ONE (08:18)
[2021-08-17] MEDS ORDERED: PROPOFOL 10 MG/ML (20ML) VIAL. IV ONE (08:18)
[2021-08-17] MEDS ORDERED: FAMOTIDINE 20 MG/2 ML VIAL ONE (08:18)
[2021-08-17] MEDS ORDERED: ROCURONIUM 50 MG/5 ML VIAL. ONE (08:18)
[2021-08-17] MEDS ORDERED: ROPIVacaine 0.5% PF 20 ML VIAL. ONE (08:18)
[2021-08-17] MEDS ORDERED: DEXAMETHASONE SOD PHOS 4 MG/ML VIAL ONE (08:18)
[2021-08-17] MEDS ORDERED: fentaNYL PF VIAL 100 MCG/2 ML VIAL ONE (08:18)
[2021-08-17] MEDS ORDERED: MIDAZOLAM HCL/PF 2 MG/2 ML VIAL. ONE (08:18)
[2021-08-17] MEDS ORDERED: ONDANSETRON PF 4 MG/2 ML VIAL. ONE (08:18)
[2021-08-17] MEDS ORDERED: LIDOCAINE 1% PF 2 ML VIAL. ONE (08:32)
[2021-08-17] MEDS ORDERED: ePHEDrine PF IN SALINE 50 MG/10 ML SYRINGE. IV ONE (10:23)
[2021-08-17] MEDS ORDERED: NEOSTIGMINE METHYLSULFATE 5 MG/5 ML SYRINGE. ONE (10:56)
[2021-08-17] MEDS ORDERED: GLYCOPYRROLATE 1 MG/5 ML VIAL. ONE (10:56)
[2021-08-17] MEDS ORDERED: 0.9 % SODIUM CHLORIDE 10 ML DISP.SYRIN. IV PRN (11:45)
[2021-08-17] MEDS ORDERED: ZOLPIDEM 5 MG TABLET. PO PRN (11:45)
[2021-08-17] MEDS ORDERED: ACETAMINOPHEN 325 MG TABLET. PO PRN (11:45)
[2021-08-17] MEDS ORDERED: IV NORMAL SALINE 1000ML BAG 1,000 ML IV SCH (11:45)
--- NOTE | 2021-08-17 13:03 | RAD ---
XR SHOULDER_LEFT 2+ VIEWS History: Reason: POST OP / Spl. Instructions: True AP of scapula and outlet view, do not move arm / H istory: Technique: 2 views left shoulder Comparison: March 29, 2021 Findings: Left reverse total shoulder arthroplasty. Expected postoperative findings. No dislocation. No acute f racture. Impression: 1. Interval left reverse total shoulder arthroplasty. No immediate hardware complications. Electronically signed by: Emigdio Yepez DO (08/17/2021 1:01 PM) [id number]
--- NOTE | 2021-08-17 13:33 | NUR ---
received from recovery. she is sedated. left arm elevated on pillow and in a simple sling. she has good pulses bilaterally and are warm to the touch. no family members present.
[2021-08-17] MEDS: ceFAZolin SODIUM IV Push 1 GM VIAL. IVP SCH ×2 (13:41→21:47)
[2021-08-17] MEDS ORDERED: PROCHLORPERAZINE 5 MG TABLET. PO PRN (14:00)
[2021-08-17] MEDS ORDERED: oxyCODONE/APAP 7.5/325 1 TAB TABLET PO PRN (14:00)
[2021-08-17] MEDS ORDERED: NALOXONE 0.4 MG/ML VIAL. IV PRN (14:00)
[2021-08-17] MEDS ORDERED: traMADol 50 MG TABLET PO PRN (14:00)
[2021-08-17] MEDS ORDERED: HYDROmorphone 2 MG/ML VIAL IV PRN (14:00)
[2021-08-17] MEDS ORDERED: DEXTROSE 50% 25 GM / 50ML DISP.SYRIN. IV PRN (14:00)
[2021-08-17] MEDS: FERROUS SULFATE 325 MG TABLET. PO SCH (17:46)
[2021-08-17] MEDS: KETOROLAC TROMETHAMINE 10 MG TABLET PO SCH (17:46)
--- NOTE | 2021-08-17 18:50 | PDOC4 ---
Operative Note Operative Note Date of surgery 08/16/2021 Preoperative diagnosis: Left rotator cuff arthropathy Postoperative diagnosis: Same with severe degenerative humeral joint and rotator cuff dysfunction Operative procedure: Left reverse shoulder arthroplasty Surgeon: Lalo Assist: Josue gonzalez assist Anesthesia: General plus scalene block Estimated blood loss: 150cc Complications: None Operative indications: Please see my orthopedic clinic note for detailed operative indications and note that we discussed the condition of rotator cuff arthropathy and the failure of nonoperative management with the operative solution of a reverse shoulder arthroplasty the possibility of infection nerve or blood vessel damage instability premature wear or loosening continued pain medical or other anesthetic complications among others. Consent was obtained and she agrees to proceed with surgical evaluation and treatment Operative text: Patient was identified procedure verified patient placed in the supine position on the operating table. After adequate amounts of general anesthesia plus a pre-existing scalene block were obtained patient was placed in the beachchair position all bony prominences were well-padded and the left shoulder was prepped and draped in standard sterile fashion. After timeout was performed patient procedure identified and verified a deltopectoral approach was carried out on the left shoulder deltoid was bluntly elevated from its distal insertion and subscapularis was divided sharply from its insertion. Supraspinatus and infraspinatus noted to be incompetent. Sharp reamer was advanced and reaming carried out up to a size 13 mm diameter and the cutting guide set at approximately 10 degrees version for the Lucille reverse shoulder arthroplasty system. Proximal reaming carried out to allow placement of a 13 x 130 mm trial stem. Glenoid was then exposed capsular release was carried out and a guidewire was placed in slight declination low centrally on the glenoid face first over drilling was accomplished and then a reamer carried out to good bleeding bone and with debridement of the residual labral tissue a 15 mm trabecular metal baseplate was placed and excellent positioning of screws inferiorly into the scapular spine for a 42 mm length and to the base of the coracoid with 33 mm length were excellent fixation and were locked in place. A 36 mm glenosphere was then impacted in place to engage the Peterson taper and trial fitting with a +6 mm standard trial resulted in excellent range of motion and stability. Trial humeral components were then removed through irrigation carried out normal saline solution and a nonporous humeral stem 13 x 130 length was assembled on the back table with a +6 mm 36 mm diameter polyethylene liner which was impacted in place in proper version reduced and found to have equivalent deltoid tension and stability. Thorough irrigation carried out with dilute Betadine solution further irrigation with saline solution and pulse lavage 1 g vancomycin was placed in the joint fascia closure accomplished with running Vicryl suture subcutaneous closure with buried Vicryl suture skin closure with subcuticular Monocryl and sterile dressings were applied. Patient was returned to recovery room in stable condition having tolerated procedure well. Josue kathleen was present for the procedure and assisted in patient positioning prepping draping retraction closure and dressings. ALEXA CHAMBERLAIN MD Aug 17, 2021 18:50
[2021-08-17] MEDS: IV DEXTROSE 5 %-0.45 % NACL 1,000 ML IV SCH (21:49)
[2021-08-18] MEDS: KETOROLAC TROMETHAMINE 10 MG TABLET PO SCH ×4 (00:05→17:59)
[2021-08-18] MEDS: IV DEXTROSE 5 %-0.45 % NACL 1,000 ML IV SCH ×3 (00:26→19:01)
[2021-08-18] MEDS: oxyCODONE/APAP 5/325 1 TAB TABLET PO PRN ×3 (00:30→19:34)
[2021-08-18] MEDS: ceFAZolin SODIUM IV Push 1 GM VIAL. IVP SCH (02:28)
[2021-08-18 02:31] VITALS: BP 129/59
[2021-08-18 05:36] VITALS: BP 110/55
[2021-08-18] MEDS ORDERED: MAGNESIUM HYDROXIDE 2,400 MG/30 ML ORAL.SUSP. PO PRN (06:00)
[2021-08-18 07:55] LABS: HEMATOCRIT 27.7 % (36.0-47.0); HEMOGLOBIN 9.5 g/dL (12.0-15.5)
[2021-08-18] MEDS: MULTIVITAMIN with MINERAL TABLET. PO SCH (08:41)
[2021-08-18] MEDS: SENNOSIDES/DOCUSATE 8.6/50MG TABLET. PO SCH (08:41)
[2021-08-18] MEDS: FERROUS SULFATE 325 MG TABLET. PO SCH ×2 (08:41→12:53)
[2021-08-18] MEDS: traMADol 50 MG TABLET PO PRN ×2 (08:42→12:51)
--- NOTE | 2021-08-18 12:00 | NUR ---
sitting on side of the bed she has pulled her heraclio dressing off and removed her sling. cleaned with chlor prep then an aquacel ag applied. she remains confused to time place and situation. no family present.
[2021-08-18] MEDS ORDERED: BISACODYL 10 MG SUPP.RECT. PR PRN (16:00)
--- NOTE | 2021-08-18 16:00 | NUR ---
resting quietly son arrives . he is agreeable to home health. he states that he will not be 24/7 but will be there the majority of the time. again reinforced to use the her sling and leave her "band aid " alone. she is agreeable but then asks immediately that her shoulder huts.
[2021-08-18 18:37] VITALS: BP 117/54
--- NOTE | 2021-08-18 21:27 | PDOC ---
PROGRESS NOTES Date of Service DATE: 08/18/21 TIME: 21:23 Subjective Subjective Problems overnight: According to nursing staff, patient had a difficult night. She was very confused and pulling her dressings off handing them to the nurse. Complained of minimal pain and moving her arm freely according to reports. Currently resting comfortably/sleeping Objective Vital Signs Vital Signs Date Time Temp Pulse Resp B/P (MAP) Pulse Ox O2 Delivery O2 Flow Rate FiO2 08/18/21 19:55 Room Air 08/18/21 18:37 98.1 80 20 117/54 (75) 96 98.1 08/18/21 05:51 3.0 Physical Exam Shoulder dressing with a Aquacel no surrounding redness, minimal swelling Labs Laboratory Tests Test 08/18/21 07:20 Hemoglobin 9.5 g/dL (12.0-15.5) Hematocrit 27.7 % (36.0-47.0) Mean Corpuscular Hemoglobin Concent 34 g/dL (31-37) Laboratory Tests Test 08/18/21 07:20 Hemoglobin 9.5 g/dL (12.0-15.5) Hematocrit 27.7 % (36.0-47.0) Mean Corpuscular Hemoglobin Concent 34 g/dL (31-37) Assessment Assessment POD#1 reverse shoulder arthroplasty Plan Plan of Care Patient remains very confused and will need home health care follow-up and accordingly via case management needs another day to arrange these issues Discussed with nursing staff the ability of the patient to use her arm as tolerated and my only restriction is really to avoid her reaching around her back, sling only for comfort and she has indeed been removing it Agree with the continued Aquacel dressing Justicifation of Admission Dx: Justifications for Admission: Justification of Admission Dx: Comment: Altered Mental Status: Altered Mental Status (Exacerbation of dementia) Angina: [facility] ALEXA CHAMBERLAIN MD Aug 18, 2021 21:27
[2021-08-18] MEDS ORDERED: OXYC5CAP PO (21:46)
--- NOTE | 2021-08-18 21:50 | SNU/HH DC ---
DISCHARGE WITH HOME HEALTH DISCHARGE INFORMATION: Discharge Date: Aug 19, 2021 Final Diagnosis: Status post reverse shoulder arthroplasty for rotator cuff arthropathy Condition on Discharge: Stable CODE STATUS: Code Status: Full HOME HEALTH: Face to Face: I certify this patient is under my care and that I, or a nurse practitioner or physician's tax assistant working with me, had a face to face encounter that meets the physician face to face encounter requirements with this patient on [08/18/21]. Medical Complications: S/P Joint Replacement Intermediate For: Assess/Skilled Observatio RN For Eval/Treatment: Yes Physical Therapy For: Evalulation/Treatment Pt Meets Homebound Status: Poor cognition POST DISCHARGE ORDERS: Activity Instructions for Disc: Activity as tolerated (Only shoulder limitation is avoid reaching behind the back for 2 months postoperatively) Weight Bearing Status after Di: As tolerated DIET AFTER DISCHARGE: Regular Wound/Incision Care: Ice to area for comfort, Do not change dressing (Maintain Aquacel dressing intact, call if saturated redness drainage or other problems) CHECKS AFTER DISCHARGE: Checks after discharge: Check blood press - daily, Check your Temp as needed, Weigh Yourself Daily FOLLOW-UP: Follow up with: [place] 10 days TREATMENT/EQUIPMENT ORDERS: Adaptive Equipment Issued: None CERTIFICATION STATEMENT: Certification Statement: Certification Statement: Based on the above finding, I certify that this patient is confined to the home and needs intermittent mcc care, physical therapy and/or speech therapy, or continues to need occupational therapy.~ This patient is under my care, and I have initiated the establishment of the plan of care.~ This patient will be followed by myself or a community physician who will periodically review the plan of care. Home Meds Active Scripts Oxycodone Hcl (OXYCODONE HCL) 5 Mg Capsule, 5 MG PO PRN Q6HRS PRN for PAIN, #30 TAB 0 Refills Prov:ALEXA CHAMBERLAIN MD 08/18/21 Hydrocodone Bit/Acetaminophen (HYDROCODONE-APAP 5-325 ) 1 Tab Tablet, 1 TAB PO PRN Q4-6HRS PRN for PAIN for 3 Days, #18 TAB Prov:EDGARDO CHAPA MD 07/29/21 Reported Medications Sertraline Hcl (SERTRALINE HCL) 100 Mg Tablet, 100 MG PO DAILY for 08/17/21 Famotidine (FAMOTIDINE) 20 Mg Tablet, 20 MG PO DAILY for 08/17/21 Cyclobenzaprine Hcl (CYCLOBENZAPRINE HCL) 10 Mg Tablet, 1 TAB PO TID for SPASM, #90 TAB 06/08/21 [place]-3 Fatty Acids/Fish Oil (FISH OIL 1,000 MG SOFTGEL) 1 Each Capsule, 1 CAP PO TID for VITAMINS for 30 Days, #90 CAP 0 Refills WITH MEALS 06/08/21 Meloxicam (MOBIC) 7.5 Mg Tablet, 1 TAB PO DAILY for JOINT, #30 TAB 1 Refill 06/08/21 Multivitamin (MULTI VITAMIN DAILY) 1 Each Tablet, 1 TAB PO DAILY for VITAMIN for 30 Days, #30 TAB 0 Refills 06/08/21 ALEXA CHAMBERLAIN MD Aug 18, 2021 21:50
[2021-08-18 23:00] VITALS: BP 118/64
[2021-08-19] MEDS: KETOROLAC TROMETHAMINE 10 MG TABLET PO SCH ×3 (01:05→12:18)
[2021-08-19] MEDS: oxyCODONE/APAP 5/325 1 TAB TABLET PO PRN (01:06)
[2021-08-19 04:38] LABS: HEMATOCRIT 25.5 % (36.0-47.0); HEMOGLOBIN 8.8 g/dL (12.0-15.5)
[2021-08-19] MEDS: IV DEXTROSE 5 %-0.45 % NACL 1,000 ML IV SCH (06:00)
[2021-08-19 06:48] VITALS: BP 118/42
[2021-08-19] MEDS: SENNOSIDES/DOCUSATE 8.6/50MG TABLET. PO SCH (08:12)
[2021-08-19] MEDS: FERROUS SULFATE 325 MG TABLET. PO SCH (08:12)
[2021-08-19] MEDS: MULTIVITAMIN with MINERAL TABLET. PO SCH (08:12)
[2021-08-19] MEDS: CALCIUM CARBONATE 500 MG TAB.CHEW PO PRN ×2 (08:34→09:08)
--- NOTE | 2021-08-19 15:50 | NUR ---
Patient left around 1520 with her son Ronny. Sling to LUE in place. Aquacel dressing CDI. Discharge education gone over by this nurse, the doctor, and therapy prior to dismissal. Education not only provided to the patient but also her son Ronny who stated he would be staying with [place] till at least the end of the month while she recovers. HH with [facility] set up by the urban and regional planner. No IV access present at discharge. Reverse total shoulder precautions gone over multiple times by the medical staff today with the patient and her son when he came to pick her up today. No concerns noted at discharge. Ronny # [phone]
== END 2021-08-19 15:20 | disposition home health service (06) ==
LOC: SURG 07:30 → 4 SOUTHEST 11:44
PROVIDERS: ADMIT Orthopaedic Surgery; ATTEND Orthopaedic Surgery
DX: M19.012 Primary osteoarthritis, left shoulder (principal); M75.102 Unspecified rotator cuff tear or rupture of left shoulder, not specified as traumatic; I10 Essential (primary) hypertension; E78.5 Hyperlipidemia, unspecified; F03.90 Unspecified dementia, unspecified severity, without behavioral disturbance, psychotic disturbance, mood disturbance, and anxiety; R41.82 Altered mental status, unspecified; Z90.711 Acquired absence of uterus with remaining cervical stump
CPT/HCPCS: 23472; 36415; 73030; 85014; 85018; 86850; 86900; 86901; 96374; 96376; 97110; 97116; 97162; 97166; 97530; 97535; A4565; A4928; A4930; A6223; A6253; A6402; A6550; C1776; G0378; G0379; J0690; J1100; J2250; J2405; J2704; J2710; J2795; J3010; J3370; J3490; A4322

== ENCOUNTER → 2021-08-25 | Outpatient (CLI) | payer MEDICARE ==
[2021-08-19 06:48] VITALS: BP 118/42
[~2021-08-25] MED LIST changes: -ACETAMINOPHEN 500 MG TABLET PO PRN; +FAMO20TA5 PO; -GABAPENTIN 300 MG CAPSULE. PO PRN; -HYDROmorphone 2 MG/ML VIAL IVP PRN; -IV RINGERS,LACTATED 1000ML 1,000 ML IV SCH; -MELOXICAM 7.5 MG TABLET PO PRN; -MORPHINE SULFATE 2 MG/ML INJ. IVP PRN; +OXYC5CAP PO; -PROCHLORPERAZINE 10 MG/2 ML VIAL. IVP PRN; +SERT-268 PO; -TRANEXAMIC ACID 1,000 MG in IV NS 50ML -- 1ST BAG INJ ONE; -ceFAZolin SODIUM IV Push 1 GM VIAL. IVP PRN; -fentaNYL PF VIAL 100 MCG/2 ML VIAL IVP PRN
--- NOTE | 2021-08-25 16:41 | RAD ---
EXAM: Left upper extremity venous Doppler. HISTORY: Left upper extremity pain/swelling. COMPARISON: None. FINDINGS: Grayscale and Doppler analysis of the left upper extremity deep venous system was performed with graded compression and augmentation. The internal jugular, subclavian, axillary, brachial, basi lic, cephalic, radial and ulnar veins were assessed. There is no evidence of deep venous thrombosis. Subcutaneous edema is noted along the left upper arm. IMPRESSION: 1. No evidence of deep venous thrombosis. Electronically signed by: Cony Aguilera MD (08/25/2021 4:38 PM) [facility]
== END ==
LOC: US 15:42
PROVIDERS: ATTEND Physician Assistant
DX: I87.1 Compression of vein (principal); M79.89 Other specified soft tissue disorders; Z96.612 Presence of left artificial shoulder joint
CPT/HCPCS: 93971

== ENCOUNTER 2021-09-04 13:04 | Emergency (ER) | payer MEDICARE ==
[~2021-09-04] VITALS: Ht 162.6 cm; Wt 68.1 kg
--- NOTE | 2021-09-04 13:43 | PHYS DOC ---
Past Medical History Past Medical History: No Pertinent History Additional Past Medical Histor: DENIES (SHASHA MEZA POLICE MANAGER) Past Surgical History: Other Additional Past Surgical Histo: RLQ SURGERY (SHASHA MEZA POLICE MANAGER) Smoking Status: Unknown if ever smoked Alcohol Use: None Drug Use: None (SHASHA MEZA APRN) General Adult EDM: Chief Complaint: FOOT INJURY PAIN HPI: HPI: Patient is a 81 year old female who presents with states yesterday as she was walking she rolled her right foot inward injuring the lateral aspect of her foot. She states that there is bruising and some swelling. She states she is still walking on it is just painful at times. She denies numbness or tingling, actually falling, dizziness, headache, hitting her head, neck pain, back pain, chest pain, shortness of air. She rates her pain a 5 out of 10. (SHASHA MEZA POLICE MANAGER) Review of Systems: Review of Systems: Constitutional: Denies fever or chills. [] Eyes: Denies change in visual acuity. [] HENT: Denies nasal congestion or sore throat. [] Respiratory: Denies cough or shortness of breath. [] Cardiovascular: Denies chest pain or + right dorsal foot edema. [] GI: Denies abdominal pain, nausea, vomiting, bloody stools or diarrhea. [] : Denies dysuria. [] Musculoskeletal: Denies back pain or joint pain. + Right dorsal lateral foot pain [] Integument: Denies rash. + Right dorsal foot bruising [] Neurologic: Denies headache, focal weakness or sensory changes. [] Endocrine: Denies polyuria or polydipsia. [] Lymphatic: Denies swollen glands. [] Psychiatric: Denies depression or anxiety. [] (SHASHA MEZA POLICE MANAGER) Heart Score: C/O Chest Pain: No (SHASHA MEZA POLICE MANAGER) Allergies: Allergies: Allergies Coded Allergies Type Severity Reaction Last Updated Verified Rcrfjak-HCN-PtU Reductase Inhibitor Allergy Mild 09/04/21 Yes Sulfa (Sulfonamide Antibiotics) Adverse Reaction Intermediate Nausea and Vomiting 09/04/21 Yes (SHASHA MEZA POLICE MANAGER) Physical Exam: PE: Constitutional: Well developed, well nourished, no acute distress, non-toxic appearance. [] HENT: Normocephalic, atraumatic, bilateral external ears normal, oropharynx moist, no oral exudates, nose normal. [] Eyes: PERRLA, EOMI, conjunctiva normal, no discharge. [] Neck: Normal range of motion, no tenderness, supple, no stridor. [] Cardiovascular:Heart rate regular rhythm, no murmur [] Lungs & Thorax: Bilateral breath sounds clear to auscultation [] Abdomen: Bowel sounds normal, soft, no tenderness, no masses, no pulsatile masses. [] Skin: Warm, dry, no erythema, no rash. + Right lateral dorsal foot bruising [] Back: No tenderness, no CVA tenderness. [] Extremities: No tenderness, no cyanosis, no clubbing, ROM intact, right dorsal lateral foot 2+ edema. [] Neurologic: Alert and oriented X 3, normal motor function, normal sensory function, no focal deficits noted. [] Psychologic: Affect normal, judgement normal, mood normal. [] (SHASHA MEZA APRN) EKG: EKG: [] (SHASHA MEZA APRN) Radiology/Procedures: Radiology/Procedures: [] Impression: [facility] [address] [place] [address] IMAGING REPORT Signed PATIENT: ROB MENEZES ACCOUNT: [id number] : 1940 LOCATION: ER AGE: 81 SEX: F EXAM STATUS: REG ER ORD. PHYSICIAN: SHASHA MEZA APRN REASON: BRUISING PROCEDURE: FOOT RIGHT 3V EXAM: Right foot 3 views. HISTORY: Pain and bruising. COMPARISON: None. FINDINGS: Three views of the right foot are obtained. No fractures are identified. Hallux valgus is moderate. First metatarsophalangeal osteoarthritis is moderate to severe. Soft tissue calcifications are noted medial to the first metatarsal head with an overlying soft tissue bunion. Second and third tarsometatarsal osteoarthritis is severe with widening of the joint spaces. Midfoot alignment is maintained. There is a moderate plantar calcaneal spur. IMPRESSION: 1. No fracture. 2. Moderate hallux valgus with moderate to severe first metatarsophalangeal osteoarthritis. Correlate for a component of crystalline arthropathy at the first metatarsophalangeal joint. 3. Severe osteoarthritis of the second and third tarsometatarsal joints. Electronically signed by: Cony Aguilera MD (09/04/2021 2:54 PM) [facility] DICTATED and SIGNED BY: PARMJIT AGUILERA MD DATE: 09/04/21 [id number] (SHASHA MEZA APRN) Course & Med Decision Making: Course & Med Decision Making Pertinent Labs and Imaging studies reviewed. (See chart for details) See HPI. Speaks in full clear sentences. Ambulatory with a steady gait using a walker or cane. Full range of motion she can wiggle her toes. No tenderness over the affected area of the foot or the ankle. No deformity in any joints. No redness or swelling to any joints. 1-2+ swelling over the dorsal right lateral side of the foot With bruising. Pedal pulses are present. Cap refill less than 2 seconds. Sensations intact. No focal weakness. No joint laxity. X-ray showed no fracture. Patient is focally wrapped in an Edmar wrap and she can follow-up with her primary care or her orthopedic. [] (SHASHA MEZA APRN) [place] Disclaimer: Tru Disclaimer: This electronic medical record was generated, in whole or in part, using a voice recognition dictation system. (SHASHA MEZA APRN) Departure Departure Impression: Primary Impression: Foot injury Qualified Codes: S99.921A - Unspecified injury of right foot, initial encounter Disposition: HOME / SELF CARE / HOMELESS Referrals: CHAPARRO RAMIRES MD (PCP) Patient Instructions: Foot Contusion, Foot Sprain Additional Instructions: Use ice and elevation. Follow-up your primary care provider [facility] follow-up with orthopedics. Take Tylenol for pain. Attending Signature Attending Signature I have reviewed the PA/GYM SUPERVISOR's note and plan of care. I was available for consultation as needed during the patient's visit in the emergency department. I agree with the clinical impression, plan, and disposition. (SAUNDRA CULP DO) SHASHA MEZA APRN Sep 04, 2021 13:43 SAUNDRA CULP DO Sep 04, 2021 16:51
--- NOTE | 2021-09-04 14:57 | RAD ---
EXAM: Right foot 3 views. HISTORY: Pain and bruising. COMPARISON: None. FINDINGS: Three views of the right foot are obtained. No fractures are identified. Hallux valgus is moderate. First metatarsophalangeal osteoarthritis is m oderate to severe. Soft tissue calcifications are noted medial to the first metatarsal head with an o verlying soft tissue bunion. Second and third tarsometatarsal osteoarthritis is severe with widening of the joint spaces. Midfoot alignment is maintained. There is a moderate plantar calcaneal spur. IMPRESSION: 1. No fracture. 2. Moderate hallux valgus with moderate to severe first metatarsophalangeal osteoarthritis. Correlate for a component of crystalline arthropathy at the first metatarsophalangeal joint. 3. Severe osteoarthritis of the second and third tarsometatarsal joints. Electronically signed by: Cony Aguilera MD (09/04/2021 2:54 PM) [facility]
[2021-09-04 15:05] VITALS: BP 134/68
== END 2021-09-04 15:05 | disposition home or self-care (01) ==
LOC: ER 13:04
DX: S99.921A Unspecified injury of right foot, initial encounter (principal); Z88.2 Allergy status to sulfonamides; Z91.041 Radiographic dye allergy status; X50.9XXA Other and unspecified overexertion or strenuous movements or postures, initial encounter; Y93.01 Activity, walking, marching and hiking; Y92.89 Other specified places as the place of occurrence of the external cause; Y99.8 Other external cause status
CPT/HCPCS: 73630; 99283; 99284

== ENCOUNTER 2021-10-11 18:52 | Emergency (ER) | payer MEDICARE ==
[2021-09-27 15:00] VITALS: BP 133/66
[~2021-10-11 18:52] MED LIST changes: +LORA0.5T96 PO
== END 2021-10-11 21:26 | disposition left against medical advice (07) ==
LOC: ER 18:52
DX: F03.90 Unspecified dementia, unspecified severity, without behavioral disturbance, psychotic disturbance, mood disturbance, and anxiety (principal); Z53.21 Procedure and treatment not carried out due to patient leaving prior to being seen by health care provider